=== PATIENT | female | born 1970 | race Caucasian/White ===

== ENCOUNTER 2019-11-16 22:36 | Emergency (ER) | payer BC, SELFPAY ==
--- NOTE | ~2019-11-16 | XR_ITS ---
EXAMINATION: XR chest 2V DATE: 11/16/2019 22:51 INDICATION: Cough TECHNIQUE: PA and lateral views of the chest are obtained. COMPARISON: 07/31/2004 FINDINGS: The lungs are free of acute opacities. There is no pleural effusion or pneumothorax. The ca rdiomediastinal silhouette is normal. There is mild thoracic spondylosis. IMPRESSION: 1. No acute cardiopulmonary abnormality. Reviewed, dictated and finalized at location A.
--- NOTE | 2019-11-16 22:41 | ED.GENADULT ---
HPI - General Adult General Chief complaint: Unspecified Stated complaint: cough Time Seen by Provider: 11/16/19 22:41 History of Present Illness HPI narrative: She awoke from sleep this evening choking and gasping for air. She was in significant distress and her performed the heimlich. This lasted less than a minute before sudden resoltution. She has had a few similar episodes in the past. She has never sought evaluation. She reports a long history of easy choking. She has had a nocturnal cough for a few weeks. On arrival to the ED she is asymptomatic. Related Data Home Medications Medication Instructions Recorded Confirmed norgestrel 0.3 mg-ethinyl 1 tablet PO DAILY 07/12/19 11/08/19 estradiol 30 mcg tablet Allergies Allergy/AdvReac Type Severity Reaction Status Date / Time No Known Allergies Allergy Verified 11/08/19 12:56 Review of Systems Review of Systems: All systems reviewed & are unremarkable except as noted in HPI and below Constitutional: Constitutional: Denies fever(s) ENT: Denies sore throat Cardiovascular: Cardiovascular: Denies chest pain Respiratory: Respiratory: Denies chest congestion, Reports cough, Reports dyspnea and Denies wheezing [facility] Family History Family History Father Hypertension Malignant neoplasm of prostate Mother Hypertension Family history of diabetes mellitus in first degree relative Social History Social History Smoking status: Never smoker Alcohol intake: never Exam Const: General: no acute distress Orientation/consciousness: patient oriented x3 HENMT: Head: normal to inspection Neck: Neck: normal visual inspection Resp: Effort & Inspection: normal respiratory effort Auscultation: clear to auscultation bilaterally, no rales, no rhonchi and no wheezes Cardio: Jugular venous distension: no JVD Rate: regular rate Rhythm: regular rhythm Heart sounds: no murmurs GI: Inspection: non-distended GI Palp: Yes Soft to palpation and No Tenderness to palpation present (GI) Skin: General skin exam: normal color Neuro: General: patient oriented x3 and moves all extremities Speech: normal speech Extrem: General: no edema Psych: Appearance: well kempt Affect: normal affect Course Vital Signs Vital signs: Vital Signs Temperature 36.6 C 05/22/20 22:44 Pulse Rate 99 11/16/19 22:44 Respiratory Rate 18 11/16/19 22:44 Blood Pressure 138/60 11/16/19 22:44 Pulse Oximetry 99 11/16/19 22:44 Temperature 36.6 C 11/16/19 22:44 Pulse Rate 70 11/17/19 00:11 Respiratory Rate 18 11/17/19 00:11 Blood Pressure 122/77 11/17/19 00:11 Pulse Oximetry 99 11/17/19 00:11 Medical Decision Making MDM Narrative Medical decision making narrative: Her history bring a few differnt possibilities to mind GERD, vocal cord spasm, anxiety, bronchospasm. Unfortunately there is no specific ED testing that will provide a definitive diagnosis. I discussed this with her in detail. She will plan to follow-up with her PCP for possible specialist referral. Medical Records Medical records reviewed: Yes I reviewed the patient's medical records. Vital Signs Vital Signs: Vital Signs Temperature 36.6 C 11/16/19 22:44 Pulse Rate 99 11/16/19 22:44 Respiratory Rate 18 11/16/19 22:44 Blood Pressure 138/60 11/16/19 22:44 Pulse Oximetry 99 11/16/19 22:44 Temperature 36.6 C 11/16/19 22:44 Pulse Rate 70 11/17/19 00:11 Respiratory Rate 18 11/17/19 00:11 Blood Pressure 122/77 11/17/19 00:11 Pulse Oximetry 99 11/17/19 00:11 Imaging Data Radiologist's impression: ITS Impressions Chest X-Ray 11/16/19 22:52 IMPRESSION: 1. No acute cardiopulmonary abnormality. Discharge Plan Discharge Clinical Impression: Choking episode Patient Disposition: Home, Self-Care Condition:
[2019-11-16 22:44] VITALS: BP 138/60; PULSE 99; RESP 18; TEMP 36.6; O2SAT 99
[2019-11-17] MEDS: BENZONATATE 100 MG CAPSULE 200 MG PO (00:09)
[2019-11-17 00:11] VITALS: BP 122/77; PULSE 70; RESP 18; O2SAT 99
== END 2019-11-17 00:12 | disposition home or self-care (01) ==
PROVIDERS: Emergency Provider Emergency Medicine; PCP Family Medicine
DX: T17.908A Unspecified foreign body in respiratory tract, part unspecified causing other injury, initial encounter (principal)
CPT/HCPCS: 71046; 99283; A9270

== ENCOUNTER 2019-11-22 07:21 | Outpatient (CLI) | payer BC, SELFPAY ==
--- NOTE | ~2019-11-22 | XR_ITS ---
EXAMINATION: XR barium swallow DATE: 11/22/2019 08:09 INDICATION: Dysphagia, unspecified. TECHNIQUE: The patient drank thick barium, gas-producing crystals, and thin barium. Fluoroscopy of th e hypopharynx and esophagus was performed. Fluoroscopy exposure time was 0.4 minutes. The total numbe r of images was 265. The dose-area product was 0.67 Gy-cm^2. COMPARISON: None. FINDINGS: There is no mass or stricture of the esophagus. Esophageal motility is normal. There is no hiatal hernia. There was no gastroesophageal reflux with provocative maneuvers. IMPRESSION: 1. Normal esophagram. Reviewed, dictated and finalized at location A. IMPRESSION: 1. Normal esophagram.
== END 2019-11-22 07:22 | disposition home or self-care (01) ==
LOC: ANHIMG 07:22
PROVIDERS: PCP Family Medicine; Visit Provider Otolaryngology
DX: R13.10 Dysphagia, unspecified (principal)
CPT/HCPCS: 74220

== ENCOUNTER 2019-11-23 02:45 | Emergency (ER) | payer BC, SELFPAY ==
--- NOTE | ~2019-11-23 | XR_ITS ---
EXAMINATION: XR chest 2V DATE: 11/23/2019 03:53 INDICATION: Shortness of breath. Cough. TECHNIQUE: Frontal and lateral views of the chest were obtained. COMPARISON: Chest 2 views 11/16/2019, CT abdomen and pelvis 08/24/2011 FINDINGS: A calcified left lung nodule is consistent with old granulomatous disease. No pleural effus ion or pneumothorax. The heart size is normal. IMPRESSION: 1. No acute cardiopulmonary disease. Reviewed, dictated and finalized at location A.
[2019-11-23 03:09] VITALS: BP 134/84; PULSE 88; RESP 18; TEMP 36.1; O2SAT 98
[2019-11-23 03:38] LABS: Basophils Percent Auto 0.3 % (0.2-1.2); Eosinophils Percent Auto 0.5 % (0-4.4); Hematocrit 38.4 % (37.0-47.0); Hemoglobin 12.7 g/dL (12.0-15.0); Immature Granulocyte Absolute 0.03 K/mm3 (0.00-0.031); Immature Granulocyte Percent A 0.3 % (0-0.5); Lymphocytes Absolute Auto 2.09 K/mm3 (0.9-3.2); Lymphocytes Percent Auto 24.2 % (18.3-44.2); Mean Corpuscular HGB Conc 33.1 g/dl (32-36); Mean Corpuscular Hemoglobin 28.3 pg (26-34); Mean Corpuscular Volume 85.7 fl (80-100); Mean Platelet Volume 9.6 fl (7.4-10.4); Monocytes Absolute Auto 0.7 K/mm3 (0.1-0.6); Neutrophils Absolute Auto 5.7 K/mm3 (1.3-6.7); Neutrophils Percent Auto 66.7 % (45.5-73.1); Platelet Count Result 346 k/mm3 (150-375); Red Blood Count 4.48 M/mm3 (4.2-5.4); Red Cell Distribution Width 12.5 % (11.5-14.5); White Blood Count 8.6 K/mm3 (4.5-10.0)
--- NOTE | 2019-11-23 03:44 | PC.NURSE ---
Dr. Washington at bedside for exam. Cancels ekg.
[2019-11-23 03:50] LABS: Blood Urea Nitrogen 12 mg/dL (7-17); Calcium 9.2 mg/dL (8.4-10.2); Carbon Dioxide 27 mmol/L (22-30); Chloride 103 mmol/L (98-107); Estimated CRCL calculation 71 ml/min; Estimated Glomerular Filt Rate > 60; Glucose 113 mg/dL (65-105); Potassium 3.8 mmol/L (3.4-5.0); Sodium 138 mmol/L (137-145)
--- NOTE | 2019-11-23 03:51 | ED.SOB ---
HPI - SOB/Dyspnea General Chief Complaint: Shortness of Breath/Dyspnea Stated Complaint: sob Time Seen by Provider: 11/23/19 03:26 History of Present Illness HPI Narrative: Patient presents with her for 3 weeks of coughing. She coughs until she chokes, and then feels frightened that she cannot get any air. She said her primary doc called falguni. She had a swallow test yesterday which came out fine. She knows she has some reflux but does not feel that this is stomach acid or vomit. She has had no fever chills and sweats. She does not have a history of asthma and has not had any wheezing. She cannot stop the coughing. She has been taking codeine and that has not helped. She had an episode here where she coughed and coughed and coughed and her face turned red, and she felt like she could not breathe for a couple seconds, and then it resolved. Her oxygen stayed high normal the whole time. She works as a teacher in the [employer]. MD elicited complaint: shortness of breath and cough Related Data Home Medications Medication Instructions Recorded Confirmed norgestrel 0.3 mg-ethinyl 1 tablet PO DAILY 07/12/19 11/20/19 estradiol 30 mcg tablet Allergies Allergy/AdvReac Type Severity Reaction Status Date / Time No Known Allergies Allergy Verified 11/23/19 03:19 Review of Systems Review of Systems: Narrative: CONSTITUTIONAL: Denies fever, chills, or sweats. EYES: Denies visual changes, redness, or discharge. ENT: Denies rhinorrhea, congestion, sore throat, or otalgia. CARDIOVASCULAR: Denies chest pain, palpitations, or edema. RESPIRATORY: She has cough and dyspnea and sputum. No wheezes. GASTROINTESTINAL: Denies abdominal pain, nausea, vomiting, or diarrhea. GENITOURINARY: Denies dysuria or hematuria. SKIN: Denies rash or itching. MUSCULOSKELETAL: Denies back pain, joint pain, or myalgia. NEUROLOGIC: Denies headache, numbness, or weakness. PSYCHIATRIC: Denies anxiety or depression. [facility] Past Medical History Medical History Choking Stridor Family History Family History Father Hypertension Malignant neoplasm of prostate Mother Hypertension Family history of diabetes mellitus in first degree relative Social History Social History Smoking status: Never smoker Alcohol intake: never Exam Narrative: Exam Narrative: GENERAL: Well-appearing, well-nourished, and in no acute distress. HEAD: Normocephalic, atraumatic. EYES: PERRLA and EOMI. ENT: Nares clear, no rhinorrhea or epistaxis. Mucous membranes moist. NECK: Supple. CHEST: Clear to auscultation. No respiratory distress. HEART: Regular rate and rhythm. No murmur heard. Normal peripheral pulses. ABDOMEN: Soft, nontender, nondistended, normal active bowel sounds. EXTREMITIES: Normal range of motion. No edema. SKIN: Warm, dry, no rash. NEURO: No focal deficits. Alert and oriented x3. PSYCH: Normal mood and affect. Course Reevaluation(s) Reevaluation #1: Explained the x-ray findings to the patient and her . She got the morphine for cough suppression, and the Solu-Medrol. I re-explained my prescriptions to both of them, and told her that I found a refrigeration plant operator for her to follow-up with. She does not work until Tuesday, and so does not need a note for work. Date: 11/23/19 Time: 04:11 Vital Signs Vital signs: Vital Signs Temperature 97.0 F L 11/23/19 03:09 Pulse Rate 88 11/23/19 03:09 Respiratory Rate 18 11/23/19 03:09 Blood Pressure 134/84 11/23/19 03:09 Pulse Oximetry 98 11/23/19 03:09 Temperature 97.0 F L 11/23/19 03:09 Pulse Rate 88 11/23/19 03:09 Respiratory Rate 18 11/23/19 03:09 Blood Pressure 134/84 11/23/19 03:09 Pulse Oximetry 98 11/23/19 03:09 MDM - SOB/Dyspnea Medical Records Attestation: I reviewed the patient's medical records
[2019-11-23] MEDS: methylPREDNISolone SOD SUCC 125 MG VIAL IV PUSH (04:01)
[2019-11-23] MEDS: MORPHINE SULFATE 2 MG/ML INJ IV PUSH (04:03)
[2019-11-23 04:25] VITALS: BP 115/79; PULSE 66; RESP 15; O2SAT 97
== END 2019-11-23 04:27 | disposition home or self-care (01) ==
PROVIDERS: Emergency Provider Emergency Medicine; PCP Family Medicine
DX: J98.01 Acute bronchospasm (principal); T17.308A Unspecified foreign body in larynx causing other injury, initial encounter
CPT/HCPCS: 36415; 71046; 80048; 85025; 96374; 96375; 99284; J2270; J2930

== ENCOUNTER 2019-12-06 11:18 | Outpatient (CLI) | payer BC, SELFPAY ==
--- NOTE | ~2019-12-06 | MMUS_ITS ---
EXAMINATION: MM screen LT diag RT w danielle, US breast RT limited HISTORY: Follow-up right breast abnormalities. TECHNIQUE: Additional 3-D tomosynthesis images of the right breast were performed and synthetic 2-D i mages were generated. Screening left mammogram. CAD analysis was submitted and interpreted. High reso lution Limited right breast ultrasound was performed. COMPARISON: Comparison to multiple prior studies sequentially, with oldest reviewed study dated 12/2010. FINDINGS: MAMMOGRAPHIC FINDINGS: The breasts are heterogenously dense, which may obscure small masses. The right breast is stable. No new masses, calcifications or architectural distortion are identified to suggest malignancy. There is no mammographic evidence for malignancy in the left breast. ULTRASOUND: Right breast ultrasound: At 8:00, 6 cm from the nipple, there is a 4 mm minimally complicated cyst. At 9:00, 4 cm from the nip ple, there is a 4 mm cyst. At 10:00, 5 cm from the nipple, there is an oval circumscribed hypoechoic mass measuring 6 mm with posterior acoustic enhancement. No internal vascularity. This lesion is unch anged from prior study. At 10:00, 4 cm from the nipple, there is a 9 mm complicated cyst. At 10:00, 3 cm from the nipple, there is a cluster of microcysts measuring 5 mm in aggregate. IMPRESSION: 1. Multiple benign-appearing right breast abnormalities. 2. Recommend 6 month follow-up right breast ultrasound BI-RADS category 3, probably benign findings. Reviewed, dictated and finalized at location A. IMPRESSION: 1. Multiple benign-appearing right breast abnormalities. 2. Recommend 6 month follow-up right breast ultrasound BI-RADS category 3, probably benign findings.
== END 2019-12-06 11:19 | disposition home or self-care (01) ==
PROVIDERS: PCP Family Medicine; Visit Provider Obstetrics & Gynecology
DX: Z12.31 Encounter for screening mammogram for malignant neoplasm of breast (principal); R92.8 Other abnormal and inconclusive findings on diagnostic imaging of breast
CPT/HCPCS: 76642; 77063; 77065; 77067

== ENCOUNTER 2020-02-05 01:19 | Outpatient (CLI) | payer BC, SELFPAY ==
[2020-02-05 18:35] LABS: SARS-CoV-2 RNA PCR Negative
== END 2020-02-05 01:20 | disposition home or self-care (01) ==
LOC: ANHCOVIDDT 01:19
PROVIDERS: PCP Family Medicine; Visit Provider Internal Medicine Gastroenterology
DX: Z01.812 Encounter for preprocedural laboratory examination (principal); Z20.828 Contact with and (suspected) exposure to other viral communicable diseases
CPT/HCPCS: 87635; C9803; U0003

== ENCOUNTER 2020-02-07 01:03 | Day surgery (SDC) | payer BC, SELFPAY ==
[2020-01-31 13:31] VITALS: BMI 25.9
[2020-02-07 07:38] VITALS: BP 117/71; PULSE 52; RESP 16; TEMP 36.8; O2SAT 100; BMI 25.9
[2020-02-07] MEDS: LACTATED RINGERS 1,000 ML 150 ML IV CONT (07:50)
--- NOTE | 2020-02-07 08:02 | PM.HPGS ---
History of Present Illness History of Present Illness Consent: Risks, benefits, and alternatives have been discussed and questions answered. Patient agrees to proceed with procedure. Chief complaint: Neoplasm Screening Narrative: Mary Ellen Ken is a 49 year old W female referred for screening colonoscopy. Patient is asymptomatic and has no family history of colon polyps or colon cancer. Patient did have a colonoscopy 8 years ago for lower abdominal pain which was normal. [facility] Past Medical History Medical History (Updated 02/07/20 @ 08:03 by Antonio Lai MD) Choking GERD (gastroesophageal reflux disease) Stridor Surgical History Surgical History (Updated 02/07/20 @ 08:03 by Antonio Lai MD) Delivery by section Social History Social History Smoking status: Never smoker Alcohol intake: never Meds Home Medications and Allergies Home Medications Medication Instructions Recorded Confirmed Type norgestrel 0.3 mg-ethinyl 1 tablet PO DAILY 07/12/19 02/07/20 History estradiol 30 mcg tablet albuterol sulfate 90 mcg/actuation 1 inhalation INHALATION QID PRN #8 12/10/19 02/07/20 Rx aerosol inhaler gm nitroglycerin 0.4 mg sublingual 0.4 mg SUBLINGUAL Q5M PRN #25 12/17/19 01/31/20 Rx tablet tablet levothyroxine 25 mcg tablet 25 mcg PO DAILY #90 tablet 01/10/20 02/07/20 Rx omeprazole 40 mg PO DAILY 01/31/20 02/07/20 History Allergies Allergy/AdvReac Type Severity Reaction Status Date / Time No Known Allergies Allergy Verified 02/07/20 07:37 Vital Signs Vital Signs - 24 hr 02/07/20 07:38 Temperature 36.8 C Pulse Rate 52 L Respiratory Rate 16 Blood Pressure 117/71 Pulse Oximetry 100 Exam Const: Orientation/consciousness: patient oriented x3 Resp: Auscultation: clear to auscultation bilaterally Cardio: Rate: regular rate Rhythm: regular rhythm Heart sounds: no murmurs GI: GI Palp: Yes Soft to palpation, No Tenderness to palpation present (GI), Yes No hepatosplenomegaly present and No Palpable mass present Auscultation: normal bowel sounds Neuro: General: patient oriented x3 and no focal motor deficits Extrem: General: no pedal edema Assessment and Plan Additional Plan screening colonoscopy in average risk patient
--- NOTE | 2020-02-07 08:08 | WPDANESEPPF ---
Anes - Initial Pre Proc Eval Procedure: Operation Date: 02/07/20 08:30 Proposed Procedures p Screening Colonoscopy - Antonio Lai MD Date/Time: 02/07/20 08:08 Surgeon: Antonio Lai MD Pre Op Diagnosis: Neoplasm Screening Patient Data Age: 49 Gender: F Height: 5 ft 7 in Weight: 75.3 kg Last Vital Signs Temp 36.8 C 02/07/20 07:38 Pulse 52 L 02/07/20 07:38 Resp 16 02/07/20 07:38 BP 117/71 02/07/20 07:38 Pulse Ox 100 02/07/20 07:38 Allergies Allergy/AdvReac Type Severity Reaction Status Date / Time No Known Allergies Allergy Verified 02/07/20 07:37 Home Medications Medication Instructions Recorded Confirmed Type norgestrel 0.3 mg-ethinyl 1 tablet PO DAILY 07/12/19 02/07/20 History estradiol 30 mcg tablet albuterol sulfate 90 mcg/actuation 1 inhalation INHALATION QID PRN #8 12/10/19 02/07/20 Rx aerosol inhaler gm nitroglycerin 0.4 mg sublingual 0.4 mg SUBLINGUAL Q5M PRN #25 12/17/19 01/31/20 Rx tablet tablet levothyroxine 25 mcg tablet 25 mcg PO DAILY #90 tablet 01/10/20 02/07/20 Rx omeprazole 40 mg PO DAILY 01/31/20 02/07/20 History Patient hx anesthesia problems: none Family hx anesthesia problems: none PMFSH Past Medical History Medical History Choking GERD (gastroesophageal reflux disease) Stridor Surgical History Surgical History Delivery by section Family History Family History Father Hypertension Malignant neoplasm of prostate Mother Hypertension Family history of diabetes mellitus in first degree relative Social History Social History Smoking status: Never smoker Alcohol intake: never Anes - Eval Final PreProcedure Day of Procedure 02/07/20 08:08 Last oral intake: >/= 8 hours ASA classification: II Emergent: no Anesthetic plan: proceed Anesthesia type and monitoring: general GIVS and standard monitoring Informed Consent: The patient's anesthetic plan and its attendant risks and benefits were discussed with the patient/family/POA. Questions were solicited and answers provided to the satisfaction of the patient/family/POA.
[2020-02-07 09:00] VITALS: BP 102/60; PULSE 71; RESP 24; O2SAT 100
[2020-02-07 09:10] VITALS: BP 105/65; PULSE 59; RESP 17; O2SAT 100
[2020-02-07 09:20] VITALS: BP 94/58; PULSE 55; RESP 16; O2SAT 100
== END 2020-02-07 09:33 | disposition home or self-care (01) ==
PROVIDERS: PCP Family Medicine; Visit Provider Internal Medicine Gastroenterology
PROC: 0DJD8ZZ Inspection of Lower Intestinal Tract, Via Natural or Artificial Opening Endoscopic (ICD-10-PCS; CPT 45378; principal; 2020-02-07 08:30)
DX: Z12.11 Encounter for screening for malignant neoplasm of colon (principal); K21.9 Gastro-esophageal reflux disease without esophagitis
CPT/HCPCS: 45378; J2704; J7120

== ENCOUNTER 2021-02-09 09:35 | Outpatient (CLI) | payer BC, SELFPAY ==
--- NOTE | ~2021-02-09 | MM_ITS ---
EXAMINATION: MM screening [facility] BI w danielle HISTORY: Screening mammogram TECHNIQUE: Craniocaudal and mediolateral oblique 3-D tomosynthesis images were obtained and synthetic 2-D images were generated. CAD analysis was submitted and interpreted. COMPARISON: 12/06/2019, 04/26/2019, 11/24/2018, 11/07/2018 BREAST PARENCHYMAL COMPOSITION: There are scattered areas of fibroglandular density. FINDINGS: There is no evidence of suspicious mass, calcification, or architectural distortion to sugg est malignancy in either breast. There has been no suspicious interval change. IMPRESSION: 1. No mammographic evidence of malignancy. 2. Recommend routine screening mammography in one year. BI-RADS Category 1: Negative Reviewed, dictated and finalized at location A.
== END 2021-02-09 09:36 | disposition home or self-care (01) ==
LOC: ANHIMG 09:39
PROVIDERS: PCP Family Medicine; Visit Provider Obstetrics & Gynecology
DX: Z12.31 Encounter for screening mammogram for malignant neoplasm of breast (principal)
CPT/HCPCS: 77063; 77067

== ENCOUNTER 2022-02-10 10:54 | Outpatient (CLI) | payer BC, SELFPAY ==
--- NOTE | ~2022-02-10 | MM_ITS ---
EXAMINATION: MM screening [facility] BI w danielle HISTORY: Screening mammogram TECHNIQUE: Craniocaudal and mediolateral oblique 3-D tomosynthesis images were obtained and synthetic 2-D images were generated. CAD analysis was submitted and interpreted. COMPARISON: 02/09/2021 bilateral screening mammogram 12/06/2019 diagnostic right digital screening mammogram and limited right breast ultrasound 04/26/2019 and 11/24/2018 diagnostic right mammogram and limited right breast ultrasound 11/07/2018 bilateral screening mammogram BREAST PARENCHYMAL COMPOSITION: The breasts are heterogeneously dense, which may obscure small masses . FINDINGS: There is no evidence of suspicious mass, calcification, or architectural distortion to sugg est malignancy in either breast. There has been no suspicious interval change. IMPRESSION: 1. No mammographic evidence of malignancy. 2. Recommend routine screening mammography in one year. BI-RADS Category 1: Negative Reviewed, dictated and finalized at location A.
== END 2022-02-10 10:55 | disposition home or self-care (01) ==
PROVIDERS: PCP Family Medicine; Visit Provider Obstetrics & Gynecology
DX: Z12.31 Encounter for screening mammogram for malignant neoplasm of breast (principal)
CPT/HCPCS: 77063; 77067

== ENCOUNTER 2023-02-14 14:07 | Outpatient (CLI) | payer BC, SELFPAY ==
--- NOTE | ~2023-02-14 | MM_ITS ---
EXAMINATION: MM screening [facility] BI w danielle HISTORY: Screening mammogram TECHNIQUE: Craniocaudal and mediolateral oblique 3-D tomosynthesis images were obtained and synthetic 2-D images were generated. CAD analysis was submitted and interpreted. COMPARISON: 02/10/2022, 02/09/2021 bilateral screening mammogram examinations BREAST PARENCHYMAL COMPOSITION: There are scattered areas of fibroglandular density. FINDINGS: There is no evidence of suspicious mass, calcification, or architectural distortion to sugg est malignancy in either breast. There has been no suspicious interval change. IMPRESSION: 1. No mammographic evidence of malignancy. 2. Recommend routine screening mammography in one year. BI-RADS Category 1: Negative Reviewed, dictated and finalized at location A.
== END 2023-02-14 14:08 | disposition home or self-care (01) ==
LOC: ANHIMG 14:09
PROVIDERS: PCP Family Medicine; Visit Provider Obstetrics & Gynecology
DX: Z12.31 Encounter for screening mammogram for malignant neoplasm of breast (principal)
CPT/HCPCS: 77063; 77067

== ENCOUNTER 2024-02-28 14:43 | Outpatient (CLI) | payer BC, SELFPAY ==
--- NOTE | ~2024-02-28 | MM_ITS ---
EXAMINATION: MM screening [facility] BI w danielle HISTORY: Screening TECHNIQUE: Craniocaudal and mediolateral oblique 3-D tomosynthesis images were obtained and synthetic 2-D images were generated. CAD analysis was submitted and interpreted. COMPARISON: Comparison to multiple prior studies sequentially, with oldest reviewed study dated 11/24. BREAST PARENCHYMAL COMPOSITION: Not dense: There are scattered areas of fibroglandular density. FINDINGS: There is no evidence of suspicious mass, calcification, or architectural distortion to sugg est malignancy in either breast. There has been no suspicious interval change. IMPRESSION: 1. No mammographic evidence of malignancy. 2. Recommend routine screening mammography in one year. BI-RADS Category 1: Negative Reviewed, dictated and finalized at location B.
== END 2024-02-28 14:44 | disposition home or self-care (01) ==
LOC: ANHIMG 14:43
PROVIDERS: PCP Family Medicine; Visit Provider Obstetrics & Gynecology
DX: Z12.31 Encounter for screening mammogram for malignant neoplasm of breast (principal)
CPT/HCPCS: 77063; 77067

== ENCOUNTER 2025-02-28 14:28 | Outpatient (CLI) | payer BC, SELFPAY ==
--- NOTE | ~2025-02-28 | MM_ITS ---
EXAMINATION: MM screening piter BI w danielle HISTORY: Screening TECHNIQUE: Craniocaudal and mediolateral oblique 3-D tomosynthesis images were obtained and synthetic 2-D images were generated. CAD analysis was submitted and interpreted. COMPARISON: Mammograms from 02/28/2024 and 02/14/2023 BREAST PARENCHYMAL COMPOSITION: The breasts are heterogeneously dense, which may obscure small masses. FINDINGS: There is no evidence of suspicious mass, calcification, or architectural distortion to suggest malignancy. Focal asymmetry in the upper- outer quadrant of the left breast, posterior depth. IMPRESSION: 1. Focal asymmetry in the upper-outer quadrant of the left breast, posterior depth. The study is incomplete. A diagnostic left breast mammogram and a diagnostic left breast ultrasound is recommended. 2. No mammographic evidence for malignancy in the right breast. BI-RADS Category 0: Incomplete-needs additional imaging evaluation Reviewed, dictated and finalized at location Q. IMPRESSION: 1. Focal asymmetry in the upper-outer quadrant of the left breast, posterior de pth. The study is incomplete. A diagnostic left breast mammogram and a diagnost ic left breast ultrasound is recommended. 2. No mammographic evidence for malignancy in the right breast. BI-RADS Category 0: Incomplete-needs additional imaging evaluation
--- OUTSIDE RECORDS SUMMARY | 2025-02-28 14:40 | XMS_ITS | Encounter Summary ---
Author Organization [facility] Address Formerly [facility] [place] [address] Care Team Providers Care Edging Machine Setter Name Role Phone Gary Fuentes MD Primary Care Provider [phone] Encounter Details Date Type Department Care Team (Late st Contact Info) Description 11/14/2023 Infolinks Message [employer] [facility] C-Note [address] [place] [address] Finderlyambrose, [facility] Provider Proof of name change Social History Tobacco Use Types Packs/Day Years Used Date Smoking Tobacco: Never Smokeless Tobacco: Never Alcohol Use Standard Drinks/Week Comments No 0 (1 standard drink = 0.6 oz pur e alcohol) AUDIT-C Answer Date Recorded Frequency of Alcohol Consumption Never 12/15/2018 Average Number of Drinks Not on file 019 Frequency of Binge Drinking Not on file 11/26 Comments No Sex and Gender Information Value Date Recorded Sex Assigned at Not on file Legal Sex Female 7:54 AM CDT Gender Identity Not on file Sexual Orientation Not on file documented as of this encounter Plan of Treatment Not on file documented as of this encounter Visit Diagnoses Not on filedocumented in this encounter Care Teams Edging Machine Setter Relationship Specialty Start Date End Date Gary Fuentes MD [address] [address] PCP - General FAMILY PRACTICE 11/22/19 documented as of this encounter
--- OUTSIDE RECORDS SUMMARY | 2025-02-28 14:40 | XMS_ITS | Clinical Summary ---
Author Organization [facility] Address [address] [place] [address] Care Team Providers Care Welding Equipment Sales Representative Name Role Phone Gary Fuentes MD Primary Care Provider [phone] Allergies No known active allergies Medications CRYSELLE-28 0.3-30 MG-MCG tablet Take 1 tablet by mouth daily. 11/25/2018 Active levothyroxine 100 MCG tablet Take 100 mcg by mouth every morning. Active Benzonatate (TESSALON PERLES OR) Active diazePAM 2 MG tablet Take 2 mg by mouth every 6 (six) hours as needed for Anxiety. Active guaiFENesin-code ine (GUAIFENESIN AC) 100-10 MG/5ML syrup Take 5 mLs by mouth every 4 (four) hours as needed for Cough. Active Active Problems No known active problems Social History Tobacco Use Types Packs/Day Years [...] on file Sexual Orientation Not on file Last Filed Vital Signs Vital Sign Reading Time Taken Comments Blood Pressure 118/64 11/22/2019 1:54 PM CDT Pulse 88 11/22/2019 1:54 PM CDT Temperature 36.3 C (97.4 F) 11/22/2019 1:54 PM CDT Respiratory Rate 18 11/22/2019 1:54 PM CDT Oxygen Saturation 98% 11/22/2019 1:54 PM CDT Inhaled Oxygen Concentration - - Weight 74.8 kg (164 lb 12.8 oz) 11/22/2019 1:54 PM CDT Height 170.2 cm (5' 7) 11/22/2019 1:54 PM CDT Body Mass Index 25.81 11/22/2019 1:54 PM CDT Plan of Treatment Health Maintenance Due Date Last Done Comments Cervical Cancer Screening Pa p Smear (Age 30 to 64) Every 3 Years 1969 Colorectal Cancer Screening Colonoscopy (10 Years) 1969 Annual Physical 1972 Hepatitis C 1987 DTaP, Tdap and Td Vaccines ( 1 - Tdap) 1988 Hepatitis B Vaccines (1 of 3 - 19+ 3-dose series) 1988 Cervical Cancer Screening Pa p with HPV Testing (Age 30 to 64) Every 5 Years 1999 Cervical Cancer Screening with HPV 1999 Mammogram Screening 2009 Pneumococcal Vaccine: 50+ Ye ars (1 of 1 - PCV) 2019 Zoster Vaccines (1 of 2) 2019 COVID-19 Vaccine ( - 2023-2 5 season) 2024 Meningococcal B Vaccine Aged Out No l onger eligible based on patient's age to complete this topic Meningococcal Vaccine Aged Out No mook jorge eligible based on patient's age to complete this topic RSV Immunizations Under 20 Months Aged Out No longer eligible based on patient's age to complete this topic Insurance [facility] Care Teams Welding Equipment Sales Representative Relationship Specialty Start Date End Date Gary Fuentes MD [address] [place], [place] [id number] PCP - General FAMILY PRACTICE 11/22/19
== END 2025-02-28 14:29 | disposition home or self-care (01) ==
LOC: ANHFOHIMG 14:30
PROVIDERS: PCP Family Medicine; Visit Provider Obstetrics & Gynecology
DX: Z12.31 Encounter for screening mammogram for malignant neoplasm of breast (principal); R92.8 Other abnormal and inconclusive findings on diagnostic imaging of breast
CPT/HCPCS: 77063; 77067

== ENCOUNTER 2025-03-19 15:33 | Outpatient (CLI) | payer BC, SELFPAY ==
--- NOTE | ~2025-03-19 | XR_ITS ---
EXAMINATION: XR knee LT 3V, 03/19/2025 15:40 CDT HISTORY: M25.561 - Pain in right knee COMPARISON: No comparisons available. Findings: No acute fracture or malalignment. No significant degenerative changes. Soft tissues unremarkable. Impression: No acute fracture or malalignment. Reviewed, dictated and finalized at location A. Impression: No acute fracture or malalignment.
--- NOTE | ~2025-03-19 | XR_ITS ---
EXAMINATION: XR knee RT 3V, 03/19/2025 15:40 CDT HISTORY: M25.561 - Pain in right knee COMPARISON: No comparisons available. Findings: No acute fracture or malalignment. No significant degenerative changes. Soft tissues unremarkable. Impression: No acute fracture or malalignment. Reviewed, dictated and finalized at location A. Impression: No acute fracture or malalignment.
--- OUTSIDE RECORDS SUMMARY | 2025-03-19 15:37 | XMS_ITS | Clinical Summary ---
Author Organization [facility] Address [address] [place] [address] Care Team Providers Care Solder Leveler Printed Circuit Boards Name Role Phone Gary Fuentes MD Primary Care Provider [phone] Allergies No known active allergies Medications CRYSELLE-28 [...] COVID-19 Vaccine ( - 2023-2 5 season) 2025 Meningococcal B Vaccine Aged Out No l onger eligible based on patient's age to complete this topic Meningococcal Vaccine Aged Out No mook jorge eligible based on patient's age to complete this topic RSV Immunizations Under 20 Months Aged Out No longer eligible based on patient's age to complete this topic Insurance [facility] Care Teams Solder Leveler Printed Circuit Boards Relationship Specialty Start Date End Date Gary Fuentes MD [address] [place], [place] [id number] PCP - General FAMILY PRACTICE 11/22/19
--- OUTSIDE RECORDS SUMMARY | 2025-03-19 15:37 | XMS_ITS | Encounter Summary ---
Author Organization [facility] Address Formerly [facility] [place] [address] Care Team Providers Care Loft Worker Apprentice Name Role Phone Gary Fuentes MD Primary Care Provider [phone] Encounter Details Date Type Department Care Team (Late st Contact Info) Description 11/14/2023 NitroSell Message [facility] [address] [place] [address] [address] [facility], [facility] Provider Proof of name change Social History [...] on filedocumented in this encounter Care Teams Loft Worker Apprentice Relationship Specialty Start Date End Date Gary Fuentes MD [address] [address] PCP - General FAMILY PRACTICE 11/22/19 documented as of this encounter
== END 2025-03-19 15:34 | disposition home or self-care (01) ==
PROVIDERS: PCP Family Medicine; Visit Provider Physician Assistant Medical
DX: M25.561 Pain in right knee (principal); M25.562 Pain in left knee; G89.29 Other chronic pain
CPT/HCPCS: 73562

== ENCOUNTER 2025-04-08 13:17 | Outpatient (CLI) | payer BC, SELFPAY ==
--- NOTE | ~2025-04-08 | MMUS_ITS ---
EXAMINATION: MM diagnostic piter LT w danielle, US breast LT limited HISTORY: Inconclusive mammogram TECHNIQUE: Additional 3-D tomosynthesis images of the left breast were performed and synthetic 2-D images were generated. CAD analysis was submitted and interpreted. High resolution left breast ultrasound was performed. COMPARISON: Mammograms from 02/28/2025, 02/28/2024 and 02/14/2023 BREAST PARENCHYMAL COMPOSITION: The breast is heterogeneously dense, which may obscure small masses. FINDINGS: MAMMOGRAPHIC FINDINGS: Focal asymmetry in the upper-outer quadrant of the left breast. The mammographic focal asymmetry corresponds with a 1.2 cm heterogeneous mass identified sonographically in the left breast at the 2:00 position, 5 cm from the nipple. ULTRASOUND: There is a 1.2 x 1.2 x 0.9 cm heterogeneous mass in the left breast at 2:00 position 5 cm from the nipple middle depth. Margins are indistinct. There is internal color Doppler flow. No posterior acoustic shadowing. There is a mammographic correlate. The finding is suspicious. There is a 7 x 7 x 3 mm benign cyst in the left breast at 3:00 position 4 cm from the nipple. IMPRESSION: 1. There is a 1.2 cm mass in the left breast at the 2:00 position, 5 cm from the nipple. The finding is suspicious. An ultrasound-guided breast biopsy is recommended. BI-RADS 4-Suspicious finding. Protocol insures that results of the study are called and/or faxed to the referring clinician's office and documented in the patient's chart per critical findings protocol. Reviewed, dictated and finalized at location Q. IMPRESSION: 1. There is a 1.2 cm mass in the left breast at the 2:00 position, 5 cm from th e nipple. The finding is suspicious. An ultrasound-guided breast biopsy is joselyn mmended. BI-RADS 4-Suspicious finding. Protocol insures that results of the study are called and/or faxed to the refer ring clinician's office and documented in the patient's chart per critical find ings protocol.
--- OUTSIDE RECORDS SUMMARY | 2025-04-08 14:30 | XMS_ITS | Encounter Summary ---
Author Organization [facility] Address [address] [place] [address] Care Team Providers Care Deep Well Contractor Name Role Phone Gary Fuentes MD Primary Care Provider [phone] Encounter Details Date Type Department Care Team (Late st Contact Info) Description 11/14/2023 RemitDATA Message [facility] [employer] [address] [place] [address] [employer] [facility], [facility] Provider Proof of name change Social History [...] on filedocumented in this encounter Care Teams Deep Well Contractor Relationship Specialty Start Date End Date Gary Fuentes MD [address] [address] PCP - General FAMILY PRACTICE 11/22/19 documented as of this encounter
== END 2025-04-08 13:18 | disposition home or self-care (01) ==
LOC: ANHFOHIMG 13:18
PROVIDERS: PCP Family Medicine; Visit Provider Obstetrics & Gynecology
DX: R92.8 Other abnormal and inconclusive findings on diagnostic imaging of breast (principal)
CPT/HCPCS: 76642; 77061; 77065; G0279

== ENCOUNTER 2025-04-24 07:09 | Outpatient (CLI) | payer BC, SELFPAY ==
--- NOTE | ~2025-04-24 | MMUS_ITS ---
US breast biopsy LT w image, MM post biopsy diagnostic LT EXAMINATION: US GUIDED NEEDLE BIOPSY WITH VACUUM ASSISTANCE INDICATION: Left breast mass seen on prior examination. Ultrasound-guided core biopsy is requested to evaluate for malignancy. BREAST PARENCHYMAL COMPOSITION: Not dense: There are scattered areas of fibroglandular density. TECHNIQUE AND FINDINGS: The risks and potential benefits of the procedure were discussed with the patient, and written informed consent was obtained. After sterile preparation of the left breast, 1% lidocaine was utilized for local anesthesia. 1% lidocaine with epinephrine was used for deep anesthesia. A 10G vacuum-assisted biopsy gun needle was advanced through to the outer edge of the region of interest from a superior lateral approach utilizing sonographic guidance. A total of three tissue core samples were obtained through the lesion. An Inrad tissue marker clip was then placed at the biopsy site. Hemostasis was achieved. The patient tolerated procedure well and there was no evidence of immediate complication. The patient was given verbal instructions partly is from the department. Left breast mammograms to document tissue marker clip placement. The tissue samples were submitted to surgical pathology for histologic analysis. IMPRESSION: 1. Successful ultrasound-guided vacuum-assisted biopsy of left breast mass with post procedure mammogram for marker placement. Please refer to pathology report for histologic analysis. Reviewed, dictated and finalized at location B. IMPRESSION: 1. Successful ultrasound-guided vacuum-assisted biopsy of left breast mass wit h post procedure mammogram for marker placement. Please refer to pathology repo rt for histologic analysis.
--- OUTSIDE RECORDS SUMMARY | 2025-04-24 07:11 | XMS_ITS | Clinical Summary ---
Author Organization [facility] Address [address] [place] [address] Care Team Providers Care Floor Covering Layer Name Role Phone Gary Fuentes MD Primary Care Provider [phone] Allergies No known active allergies Medications CRYSELLE-28 [...] of 2) 2019 COVID-19 Vaccine ( - 2024-2 6 season) 2025 Influenza Adult (#1) 2025 Hepatitis A Vaccines Aged Out No long er eligible based on patient's age to complete this topic Meningococcal B Vaccine Aged Out No l onger eligible based on patient's age to complete this topic Meningococcal Vaccine Aged Out No mook jorge eligible based on patient's age to complete this topic RSV Immunizations Under 20 Months Aged Out No longer eligible based on patient's age to complete this topic Insurance [facility] Care Teams Floor Covering Layer Relationship Specialty Start Date End Date Gary Fuentes MD [address] [place] [address] PCP - General FAMILY PRACTICE 11/22/19
--- NOTE | 2025-04-24 09:58 | S_PTH ---
PATIENT: Mary Ellen Deluna LOC: [facility] U#:[id number] AGE/SX: 54/F ROOM: RE04/24/[address]: Sayra Gonzalez MD : 1970 BED: DIS: 04/24/2025 SPEC #: [id number] RECD: 04/24/25 10:49 STATUS: SISSY REPaige #: [id number] RODO: 04/24/25 09:[address]: Sayra Gonzalez DEPT: [facility] Surgical RECD BY: Keke Leger ENTERED: 04/24/25 10:49 SP TYPE: Surgical OTHR DR: Gary Fuentes MD Tissues: A - Breast Biopsy Procedures: Hematoxylin and Eosin Stain E-Cadherin Gross and Microscopic Level 4 ER-60 IA-60 MIB-60 HER 2-60
== END 2025-04-24 07:10 | disposition home or self-care (01) ==
PROVIDERS: PCP Family Medicine; Visit Provider Surgery
DX: N63.21 Unspecified lump in the left breast, upper outer quadrant (principal)
CPT/HCPCS: 19083; 77065; 88305; 88342; 88360; A4648

== ENCOUNTER 2025-04-30 07:23 | Outpatient (CLI) | payer BC, SELFPAY ==
--- NOTE | ~2025-04-30 | MR_ITS ---
MR breast BI wo/w con INDICATION:54 year old female recently diagnosed with left breast cancer at ultrasound-guided core needle biopsy completed on 04/08/2025 presents for evaluation of extent of disease. TECHNIQUE: MRI of the breasts perform using standard protocol pre-and post IV contrast with the following sequences: Axial T2 STIR, axial T1, axial vibrant T1 with fat suppression precontrast and multiphasic postcontrast. 15 cc MultiHance administered intravenously. COMPARISON: Mammogram and ultrasound dated 04/08/2025. FINDINGS: There is Scattered fibroglandular tissue that demonstrates Moderate enhancement and is Symmetric. Right breast: There is a 0.8 cm mass behind the nipple (axial postcontrast image 302) which demonstrates washout kinetics. This may represent an intraductal lesion. There is an additional 0.7 cm enhancing mass seen at 9:00 location at posterior depth (postcontrast axial image 287). There is mild background parenchymal enhancement. No other enhancing lesions following contrast administration. Nipple areolar complex is normal in appearance. No evidence of signal abnormalities in the axillary or internal mammary node distributions. LEFT BREAST: There is a 2.6 x 2 cm heterogeneously enhancing mass containing biopsy clip artifact in the lateral central location which correlates to the known biopsy-proven malignant lesion. There is nonmass enhancement that extends inferiorly from the index lesion spanning 3.2 cm. There is moderate background parenchymal enhancement. No other enhancing lesions following contrast administration. No other areas of enhancement meeting threshold criteria on CAD analysis. The nipple areolar complex is normal in appearance. There are at least one prominent lymph node with mildly thickened cortex in the left axilla.] IMPRESSION: 1: Right breast: Multiple enhancing lesions identified. Recommend further evaluation with Second Look ultrasound. 2. Left breast: Known biopsy-proven malignant lesion is identified as a 2.6 cm heterogeneously enhancing mass containing biopsy clip artifact in the lateral central location. There is a nonmass enhancement area that extends inferiorly spanning 3.2 cm. 3. Prominent lymph node in the left axilla otherwise The chest wall and axillary portion of the examination are unremarkable. RECOMMENDATION: 1. Second Look ultrasound right breast. If there is no sonographic correlate to the enhancing lesions in the right breast, then these are considered probably benign and follow-up breast MRI in 6 months would be recommended. 2. Appropriate medical oncology and surgical oncology management of known left breast malignancy. BI-RADS Category 0: Incomplete: Needs additional imaging evaluation. Reviewed, dictated and finalized at location B. IE MIXER HELPER IMPRESSION: 1: Right breast: Multiple enhancing lesions identified. Recommend further eval uation with Second Look ultrasound. 2. Left breast: Known biopsy-proven malignant lesion is identified as a 2.6 cm heterogeneously enhancing mass containing biopsy clip artifact in the lateral c entral location. There is a nonmass enhancement area that extends inferiorly sp anning 3.2 cm. 3. Prominent lymph node in the left axilla otherwise The chest wall and axillar y portion of the examination are unremarkable. RECOMMENDATION: 1. Second Look ultrasound right breast. If there is no sonographic correlate t o the enhancing lesions in the right breast, then these are considered probably benign and follow-up breast MRI in 6 months would be recommended. 2. Appropriate medical oncology and surgical oncology management of known left breast malignancy. BI-RADS Category 0: Incomplete: Needs additional imaging evaluation.
== END 2025-04-30 07:24 | disposition home or self-care (01) ==
LOC: ANHIMG 07:26
PROVIDERS: PCP Family Medicine; Visit Provider Surgery
DX: C50.912 Malignant neoplasm of unspecified site of left female breast (principal); R92.2 Inconclusive mammogram; N64.89 Other specified disorders of breast; N63.20 Unspecified lump in the left breast, unspecified quadrant; R59.0 Localized enlarged lymph nodes
CPT/HCPCS: 77049; A9577; C8908

== ENCOUNTER 2025-05-08 08:05 | Outpatient (CLI) | payer BC, SELFPAY ==
--- NOTE | ~2025-05-08 | US_ITS ---
US breast RT limited 05/08/2025 08:33 Indication: Recent MRI of the breast demonstrates multiple enhancing lesions. Second Look ultrasound recommended. Procedure: High-resolution Limited right breast and axillary ultrasound Comparison: MRI dated 04/30/2025 and screening mammogram dated 04/30/2025 Findings: There are multiple cysts of the right breast. No suspicious masses are identified in the right breast to suggest malignancy. No significant right axillary lymphadenopathy. Impression: 1: No sonographic evidence for malignancy in the right breast. Benign findings. Routine yearly screening mammogram and regular clinical breast examination are recommended. BI-RADS CATEGORY 1 - NEGATIVE Reviewed, dictated and finalized at location B. WAGON OPERATOR Impression: 1: No sonographic evidence for malignancy in the right breast. Benign findings. Routine yearly screening mammogram and regular clinical breast examination are recommended. BI-RADS CATEGORY 1 - NEGATIVE
--- NOTE | ~2025-05-08 | US_ITS ---
US axilla LT 05/08/2025 08:32 Indication: Known left breast cancer. Procedure: High-resolution ultrasound of the left axilla Comparison: MRI breast dated 04/30/2025 Findings: There are normal-appearing lymph nodes of the left axilla with fatty hilum. No suspicious pathologic appearing lymph nodes are identified. Impression: 1: Normal left axillary lymph nodes without suspicious effacement of the fatty hilum to suggest metastatic disease. Reviewed, dictated and finalized at location B. HOSTESS Impression: 1: Normal left axillary lymph nodes without suspicious effacement of the fatty hilum to suggest metastatic disease.
--- OUTSIDE RECORDS SUMMARY | 2025-05-08 08:11 | XMS_ITS | Clinical Summary ---
Author Organization [facility] Jose mcgrath [address] Address [address] [place] [address] Care Team Providers Care Livestock Breeder Name Role Phone Unavailable Primary Care Provider Unavailabl e Social History Tobacco Use Types Packs/Day Years Used Date Smoking Tobacco: Never Assessed Comments Unknown Sex and Gender Information Value Date Recorded Sex Assigned at Not on file Legal Sex Female 10:53 AM CYLINDER LOADER Gender Identity Not on file Sexual Orientation Not on file Plan of Treatment Upcoming Encounters Date Type Department Care Team (Late st Contact Info) Description 05/08/2025 2:30 PM CYLINDER LOADER Office Visit [facility] Oncology and Hematology - [place] [address] [place] [address] Kateryna Conklin MD [address] [place] [address] Health Maintenance Due Date Last Done Comments DTAP/TDAP/TD VACCINES (1 - Tdap) 1988 HEPATITIS B VACCINES (1 of 3 - 19+ 3-dose series) 04/28 HPV/Cotest (21-29) 1990 CERVICAL CANCER SCREENING 1999 HPV/Cotest (30-65) 1999 PAP SMEAR 1999 BREAST CANCER SCREENING 2009 COLORECTAL SCREENING 2014 Colorectal Cancer Screening 2014 FIT-DNA Q 3 years 2014 FIT/FOBT Q 1 year 2014 Flex Sig/CT Colonography Q 5 years 2014 ZOSTER VACCINE (1 of 2) 2019 INFLUENZA VACCINE (#1) 2025 Insurance [facility]
== END 2025-05-08 08:06 | disposition home or self-care (01) ==
LOC: ANHFOHIMG 08:06
PROVIDERS: PCP Family Medicine; Visit Provider Surgery
DX: C50.912 Malignant neoplasm of unspecified site of left female breast (principal); R92.8 Other abnormal and inconclusive findings on diagnostic imaging of breast
CPT/HCPCS: 76642; 76882

== ENCOUNTER 2025-05-08 15:18 | Outpatient (CLI) | payer BC, SELFPAY ==
--- OUTSIDE RECORDS SUMMARY | 2025-05-08 14:30 | XMS_ITS | Encounter Summary ---
Author Organization [facility] [employer] [facility] Address [address] [place] [address] Care Team Providers Care Technical Stenographer Name Role Phone Gary Fuentes MD Primary Care Provider [phone] Encounter Details Date Type Department Care Team (Late st Contact Info) Description 05/08/2025 2:30 PM DOUGH PUNCHER Office Visit [facility] Oncology and Hematology - [place] [address] [place] [address] Kateryna Conklin MD [address] [place] [address] Malignant neoplasm of upper-outer quadrant of left breast in female, estrogen receptor positive (CMS/HCC) (Primary Dx) Social History Tobacco Use Types Packs/Day Years Used Date Smoking Tobacco: Never Smokeless Tobacco: Never Tobacco Cessation:Counseling Given: Not Answered Alcohol Use Standard Drinks/Week Comments Yes 0 (1 standard drink = 0.6 oz pur e alcohol) Ocassionally Comments Unknown Sex and Gender Information Value Date Recorded Sex Assigned at Not on file Legal Sex Female 10:53 AM DOUGH PUNCHER Gender Identity Not on file Sexual Orientation Not on file documented as of this encounter Last Filed Vital Signs Vital Sign Reading Time Taken Comments Blood Pressure 120/79 05/08/2025 2:20 PM DOUGH PUNCHER Pulse 70 05/08/2025 2:20 PM DOUGH PUNCHER Temperature 36.8 C (98.2 F) 05/08/2025 2:20 PM DOUGH PUNCHER Respiratory Rate 15 05/08/2025 2:20 PM DOUGH PUNCHER Oxygen Saturation 98% 05/08/2025 2:20 PM DOUGH PUNCHER Inhaled Oxygen Concentration - - Weight 76.3 kg (168 lb 3.2 oz) 05/08/2025 2:20 P M DOUGH PUNCHER Height 170.2 cm (5' 7) 05/08/2025 2:20 PM DOUGH PUNCHER Body Mass Index 26.34 05/08/2025 2:20 PM DOUGH PUNCHER documented in this encounter Plan of Treatment Upcoming Encounters Date Type Department Care Team (Late st Contact Info) Description 05/28/2025 4:35 PM DOUGH PUNCHER Telephone Check Up [facility] Oncology and Hematology [facility] [address] [place] [address] Jeremiah Daniels MD [address] [place] [address] Scheduled Orders Name Type Priority Associated Diagnoses Orde r Schedule CBC WITH DIFFERENTIAL Lab Routine Malignant neoplasm of upper-outer quadrant of left breast in female, estrogen receptor positive (CMS/HCC) Expected: 05/08/2025, Expires: 05/08/2026 COMPREHENSIVE METABOLIC PANEL Lab Routine Malignant neoplasm of upper-outer quadrant of left breast in female, estrogen receptor positive (CMS/HCC) Expected: 05/08/2025, Expires: 05/08/2026 FSH Lab Routine Malignant neoplasm of upper-outer quadrant of left breast in female, estrogen receptor positive (CMS/HCC) Expected: 05/08/2025, Expires: 05/08/2026 ESTRADIOL Lab Routine Malignant neoplasm of upper-outer quadrant of left breast in female, estrogen receptor positive (CMS/HCC) Expected: 05/08/2025, Expires: 05/08/2026 documented as of this encounter Visit Diagnoses Diagnosis Malignant neoplasm of upper-outer quadrant of left breast in female, estrogen receptor positive (CMS/HCC)- Primary documented in this encounter Care Teams Technical Stenographer Relationship Specialty Start Date End Date Gary Fuentes MD [address] [place] [address] PCP - General Family Practice 05/08/25 documented as of this encounter
[2025-05-08 15:32] LABS: Hematocrit 42.0 % (37.0-47.0); Hemoglobin 13.3 g/dL (12.0-15.0); Immature Granulocyte Percent A 0.2 % (0-0.5); Lymphocytes Absolute Auto 2.22 K/mm3 (0.9-3.2); Mean Corpuscular HGB Conc 31.7 g/dl (32-36); Mean Corpuscular Hemoglobin 28.2 pg (26-34); Mean Corpuscular Volume 89.0 fl (80-100); Nucleated Red Blood Cells Absolute Auto 0.000 K/mm3 (0.0-0.012); Nucleated Red Blood Cells Perc 0.0 % (0.0-0.2); Platelet Count Result 264 k/mm3 (150-375); Red Blood Count 4.72 M/mm3 (4.2-5.4); White Blood Count 6.6 K/mm3 (4.5-10.0)
--- OUTSIDE RECORDS SUMMARY | 2025-05-08 16:03 | XMS_ITS | Clinical Summary ---
Author Organization [facility] Jose [address]ose Address [address] [place] [address] Care Team Providers Care Devops Consultant Name Role Phone Gary Fuentes MD Primary Care Provider Allergies No known active allergies Medications levothyroxine 25 mcg tablet Take 1 Tablet by mouth daily. 02/10/2025 Active Encounters Date Type Department Care Team Description 05/08/2025 2:30 PM GEOPHYSICAL OBSERVER Office Visit [facility] Oncology and Hematology - [place] [address] [facility] [address] [place] [address] Kateryna Conklin MD Malignant neoplasm of upper-outer quadrant of left breast in female, estrogen receptor positive (CMS/HCC) (Primary Dx) from Last 3 Months Family History Medical History Relation Name Comments Diabetes Brother 1 No Known Problems Brother 2 Diabetes Brother 3 No Known Problems Brother 4 Lung Cancer Brother 5 No Known Problems Child 1 No Known Problems Child 2 Diabetes Father Lung Cancer Father Diabetes Mother Heart Disease Mother Diabetes Sister 1 Diabetes Sister 2 No Known Problems Sister 3 Esophageal Cancer Sister 4 Relation Name Status Comments Brother 1 Alive Brother 2 Alive Brother 3 Alive Brother 4 Alive Brother 5 Child 1 Alive Child 2 Alive Father Mother Sister 1 Alive Sister 2 Alive Sister 3 Alive Sister 4 Alive Social History Tobacco Use Types Packs/Day Years Used Date Smoking Tobacco: Never Smokeless Tobacco: Never Tobacco Cessation:Counseling Given: Not Answered Alcohol Use Standard Drinks/Week Comments Yes 0 (1 standard drink = 0.6 oz pur e alcohol) Ocassionally Comments Unknown Sex and Gender Information Value Date Recorded Sex Assigned at Not on file Legal Sex Female 10:53 AM GEOPHYSICAL OBSERVER Gender Identity Not on file Sexual Orientation Not on file Last Filed Vital Signs Vital Sign Reading Time Taken Comments Blood Pressure 120/79 05/08/2025 2:20 PM GEOPHYSICAL OBSERVER Pulse 70 05/08/2025 2:20 PM GEOPHYSICAL OBSERVER Temperature 36.8 C (98.2 F) 05/08/2025 2:20 PM GEOPHYSICAL OBSERVER Respiratory Rate 15 05/08/2025 2:20 PM GEOPHYSICAL OBSERVER Oxygen Saturation 98% 05/08/2025 2:20 PM GEOPHYSICAL OBSERVER Inhaled Oxygen Concentration - - Weight 76.3 kg (168 lb 3.2 oz) 05/08/2025 2:20 P M GEOPHYSICAL OBSERVER Height 170.2 cm (5' 7) 05/08/2025 2:20 PM GEOPHYSICAL OBSERVER Body Mass Index 26.34 05/08/2025 2:20 PM GEOPHYSICAL OBSERVER Plan of Treatment Upcoming Encounters Date Type Department Care Team (Late st Contact Info) Description 05/28/2025 4:35 PM GEOPHYSICAL OBSERVER Telephone Check Up [facility] Oncology and Hematology [facility] [address] [facility] [address] [place] [address] Jeremiah Daniels MD [address] [facility] [address] [place] [address] Health Maintenance Due Date Last [...] 2014 ZOSTER VACCINE (1 of 2) 2019 Preventative Visit- Commercial 06/27/2024 INFLUENZA VACCINE (#1) 2025 Insurance [facility] [employer] Care Teams Devops Consultant Relationship Specialty Start Date End Date Gary Fuentes MD [address] [place] [address] PCP - General Family Practice 05/08/25
[2025-05-08 16:23] LABS: Alanine Aminotransferase 39 U/L (6-35); Albumin Level 4.4 g/dL (3.5-5.1); Alkaline Phosphatase 94 U/L (38-126); Anion Gap 7 mmol/L (4-12); Aspartate Amino Transferase 52 U/L (14-36); Bilirubin,Total 0.4 mg/dL (0.2-1.3); Blood Urea Nitrogen 16 mg/dL (7-17); Calcium 9.3 mg/dL (8.4-10.2); Carbon Dioxide 28 mmol/L (22-30); Chloride 101 mmol/L (98-107); Estimated Glomerular Filt Rate > 60; Glucose 91 mg/dL (65-110); Potassium 4.5 mmol/L (3.4-5.0); Sodium 136 mmol/L (137-145); Total Protein 7.7 g/dL (6.3-8.2)
[2025-05-09 12:08] LABS: FSH 27.9 mIU/mL (.)
[2025-05-14 15:09] LABS: Estradiol, Sensitive <2.5 pg/mL (.)
== END 2025-05-08 15:19 | disposition home or self-care (01) ==
LOC: ANHLAB 15:19
PROVIDERS: PCP Family Medicine; Visit Provider Internal Medicine Hematology & Oncology
DX: C50.412 Malignant neoplasm of upper-outer quadrant of left female breast (principal); Z17.0 Estrogen receptor positive status [ER+]
CPT/HCPCS: 36415; 80053; 82670; 83001; 85025

== ENCOUNTER 2025-06-03 11:17 | Outpatient (CLI) | payer BC, SELFPAY | END 2025-06-03 11:18 | disposition home or self-care (01) | LOC: ANHSURGERY 11:18 | PROVIDERS: PCP Family Medicine; Visit Provider Surgery | DX: Z01.818 Encounter for other preprocedural examination (principal); C80.1 Malignant (primary) neoplasm, unspecified | CPT/HCPCS: 36415; 86850; 86900; 86901 ==

== ENCOUNTER 2025-06-05 00:51 | Day surgery (SDC) | payer BC, SELFPAY ==
[2025-05-31 14:46] VITALS: BMI 26.3
--- NOTE | 2025-05-31 14:57 | PC.NURSE ---
[facility] has started construction of its new state of the art ER which will open Spring 2026. With this, we anticipate parking may be a challenge for some our surgical patients and families. Parking spaces are limited but are available for all Surgical, obstetrics, and ER patients sharing this lot. If you arrive and find you are having a hard time finding a parking space, please note that we understand the challenges, please drive around the hospital and park near Hospital Entrance 1. When you enter this entrance, you can ask a volunteer to direct or take you back to the surgical waiting area to check in. We appreciate everyone?s understanding of these expected challenges while we build for your future. Report to the Outpatient Waiting Room, entrance under the green pavilion located off [address], at time _0700 on date _06/05/25 . Planned Procedure Time: ___0900 .? Time changes happen often and if your time is changed the preop area will call you the afternoon before. - You and your visitor will be asked to self-screen and do not enter if you have any COVID symptoms. Please call surgeon if you need to reschedule. - A mask is optional within the hospital at this time. Patients may have clear liquids (water, carbonated beverages, clear teas, apple juice) until 3 hours prior to surgery with a maximum of 20 ounces. - No food from midnight until time of surgery and no smoking, or chewing tobacco (or any form of nicotine). No chewing gum, candy or mints. - Infants may have breast milk until 4 hours before surgery, infant formula 6 hours prior to surgery. - Children will be allowed to drink immediately following surgery.? If applicable, please bring a bottle or sippy cup to assist with drinking. Juice, water, soda, and popsicles are readily available.? For infants on formula, please bring formula the day of surgery.? Pacifiers are allowed. Take only the following medications with a SIP of water on the morning of surgery: ___None DO NOT STOP ANY OF YOUR OTHER PRESCRIPTION MEDICATIONS PRIOR TO SURGERY EXCEPT THE FOLLOWING Hold all vitamins and supplements for 3 days per anesthesiologist. Medications to discontinue per physician ____N/A Date to take last dose_N/A Please no make-up, nail yi, hairspray, perfume, deodorant, or body powder the day of surgery.? No jewelry (including any body piercings) or valuables the day of surgery, leave them at home.? Please take a shower or bath the night before, or the morning of, surgery with an antibacterial soap.? Wear comfortable, loose fitting clothing.? Children are encouraged to wear pajamas. - Jewelry must be removed prior to entering the operating room.? Rings and piercings that are not removed may be cut off. - The hospital will not accept responsibility for valuables.? - Please leave all valuables, including medications, at home the day of surgery. If you are going home after surgery, a licensed drivers' cash clerk must drive you home.? - NO public transportation without another adult if you receive anesthesia. - We recommend that an adult stay with you for 24 hours following discharge. - We also recommend that you do not drive, make important decision, drink alcoholic beverages, or take any drugs that were not prescribed by your health care provider for at least 24 hours after your discharge time. For Pediatric surgeries, we recommend two adults accompany the child home. Follow any additional instructions given to you from your surgeon. Telephone instructions given to __Mary Ellen and asked if any additional questions and then verbalized understanding. Patient advised to call surgeon office or pre surgery nurse liaison [phone] if any additional questions.
--- OUTSIDE RECORDS SUMMARY | 2025-06-04 09:52 | XMS_ITS | Encounter Summary ---
Author Organization [facility] Address [address] [place] [address] Care Team Providers Care Hat Blocking Machine Operator Name Role Phone Gary Fuentes MD Primary Care Provider [phone] Reason for Referral * PET Scan (Routine) - Pending Review Specialty Diagnoses / Procedures Referred By Contac t Referred To Contact Radiology Diagnoses Malignant neoplasm of upper-outer quadrant of left breast in female, estrogen receptor positive (CMS/HCC) Procedures PET TUMOR OR INFECTION IMG W CT SKB Kateryna Dubois MD [address] [place] [address] Phone: tel: fax: [facility] [id number] [place] [phone] Phone: tel: Referral ID Status Reason Start Date Expiration Date Visits Requested Visits Authorized [id number] Pending Review CRS to Schedule 06/03/2025 1 1 TAKER Reason for Visit * PET Scan (Routine) - Pending Review Specialty Diagnoses / Procedures Referred By Contac t Referred To Contact Radiology Diagnoses Malignant neoplasm of upper-outer quadrant of left breast in female, estrogen receptor positive (CMS/HCC) Procedures PET TUMOR OR INFECTION IMG W CT SKKateryna Lemus MD [address] [place] [address] Phone: tel: fax: [facility] [address] [place] [address] Phone: tel: Referral ID Status Reason Start Date Expiration Date Visits Requested Visits Authorized [id number] Pending Review CRS to Schedule 06/03/2025 1 1 Encounter Details Date Type Department Care Team (Late st Contact Info) Description 06/04/2025 9:52 AM CALL TAKER Hospital Encounter [facility] [address] [place] [address] Kateryna Conklin MD [address] [place] [address] Arrived Social History Tobacco Use Types Packs/Day Years Used Date Smoking Tobacco: Never Smokeless Tobacco: Never Alcohol Use Standard Drinks/Week Comments Yes 0 (1 standard drink = 0.6 oz pur e alcohol) Ocassionally Comments Unknown Sex and Gender Information Value Date Recorded Sex Assigned at Not on file Legal Sex Female 10:53 AM CALL TAKER Gender Identity Not on file Sexual Orientation Not on file documented as of this encounter Progress Notes * Chani Felix, EMY - 06/04/2025 10:30 AM CST IMAGING SERVICES- NUCLEAR MEDICINE MEDICATION and FLUSH PROTOCOL [facility] THIS PROTOCOL IS IMPLEMENTED WHEN AN APPROVED PROVIDER ORDERS A NUCLEAR MEDICINE STUDY BY PAPER OR ELECTRONIC ORDER. The technologist will order all medication that appears on the MAR using ???Per Protocol or Standing - Cosign Required?? . Enter the protocol in the patient's electronic health record using smartphrase: .nucmedNewBridge PharmaceuticalsSprotocol Communication Orders: For ordered imaging procedures requiring intravenous access : Initiate a peripheral IV, if not already in place, and discontinue IV prior to discharge (if outpatient). Medication Orders: Sodium chloride 0.9% (normal saline) flush 10 mLs PRN for saline lock or medication administration. Adult Procedures & Dosages: The dosage to be dispensed may be specified as either: a single standard dosage in mCi or ?Ci or asa dosage range in mCi or ?Ci.The dispensed dosage must be within one of the following allowable parameters: Single Standard Dosage: ?? 20% of the single standard dosage For example, for bone scintigraphy, the adult dosage is 25 mCi. Thus, the injected dosage can be between 20 mCi and 30 mCi. Dosage Range: must be within the prescribed dosage range For example, for Xe-133 (Xenon-133), the adult dosage range is 3-30mCi. Thus, the patient dosage must be at least 3.0 mCi and up to 30mCi. Note: based upon a patient's special condition(s) the recommended dosage may be increased or decreased as needed under the direction of an authorized user physician. Doses may be decreased as needed during a Technetium Shortage by 20-50% to ensure availability while still providing quality exams. Pediatric Procedures & Dosages: The dosage to be dispensed is a single standard dosage in mCi or ?Ci . The dispensed dosage must be within the following allowable parameter: Single Standard Dosage: The administered activity should be based on the patient's weight. Once theweight-based dosage is calculated, the administered activity can be within a ?? 20% range of the calculated single standard dosage. However, the dosage cannot be greater than the adult reference activity unless otherwise directed by an authorized-user physician. Note: based upon a patient's special condition(s) the recommended dosage may be increased or decreased as needed under the direction of an authorized user physician. Procedure Specific Medications: PROCEDURE DOSAGE Bone Marrow Imaging Cr99p-Pnhxsq Colloid (Dtnatfzozm53a-aofrgz colloid), Administer 8mCi Rs20s-vwwujq colloid, IV, ONE TIME. Bone Scan Imaging (Whole Body, Limited, 3-Phase, or SPECT) Rq22w-WZT (Grreekigne17l-yzgguengp), Administer 25mCi, IV, ONE TIME. Brain Imaging Tc99m- Ceretec (Blhoowbvnq23i-mejnwwwjgpb), Administer 20mCi, IV, ONE TIME. Brain SPECT Imaging Tm19n-Jxwwtnq (Zyiaxbaina00m- exametazine), Administer 20mCi, IV, ONE TIME. Captopril Renal Imaging At02x-HFK9 (Juhdhnomcv97q- mertiatide), Administer 5mCi, IV, ONE TIME. AND Administer Captopril 50mg, PO, ONE TIME Cerebral Flow Imaging Tc99m- Ceretec (Jqqzemrmfr19x- exametazine), Administer 20mCi, IV, ONE TIME Cisternogram Imaging In-111 DTPA (Indium-111 pentetate), Neuroradiologist to administer 500uCi, Intrathecally, ONE TIME. Diuretic Renal Imaging Nu78n-TNV9 (Anrbxegmvv36u- mertiatide), Administer 5mCi, IV, ONE TIME. AND Administer Lasix (furosemide), 20mg/2ml, IV push over 2 minutes, ONE TIME DaTscan Imaging . I-123 Ioflupane (Iodine-123 ioflupane), Administer 5mCi, IV, ONE TIME. AND Administer SSKI (Potassium Iodide) drops, 130mg, Orally, ONE TIME 30 minutes prior to radiopharmaceutical injection Diverticulum/Meckel's Imaging Tc-99m sodium pertechnetate (Agperrbktf41d-khenth pertechnetate), Administer 15mCi, IV, ONE TIME. Ga-67 Citrate - Cancer Imaging Ga-67 Citrate (Gallium-67 Citrate), Administer 7mCi, IV, ONE TIME. Ga-67 Citrate - Lymphoma SPECT Imaging Ga-67 Citrate (Gallium-67 Citrate), Administer 10mCi, IV, ONE TIME. Ga-67 Citrate - Whole Body Imaging Ga-67 Citrate (Gallium-67 Citrate), Administer 5mCi, IV, ONE TIME. Gastric Empty Imaging - Solid Meal Xt44t-Dbvihf Colloid (Sbyqarixki07s-zklimp colloid), Administer 0.5 mCi in 4 oz egg beaters, Orally, ONE TIME. GFR Imaging Pl51j-JCNJ (Ciqomsnvhu04q- pentetate), Administer 3mCi, IV, ONE TIME. GI Bleed Imaging Tc-99m sodium pertechnetate (Idvawccnop47l- sodium pertechnetate) Ultratag, Administer 25mCi heparanized RBCs, IV, ONE TIME. Hemangioma Imaging Tc-99m sodium pertechnetate (Tvbxqbnpve04l- sodium pertechnetate) Ultratag, Administer 25mCi heparanized RBCs, IV, ONE TIME. Hepatobiliary Scan Imaging Tc-99m Mebrofenin (Emrodovmlo25j-emfqacbkok), Administer 5 mCi IV, ONE TIME Hepatobiliary Scan with Ejection Fraction Imaging Tc-99m Mebrofenin (Zcsrjkloen94x-ipuugdinjr), Administer 5mCi IV, ONE TIME. AND For immediate use -Give 1 bottle of Ensure 8 oz. (237 mL) OR Only if patient is unable to drink ensure, For immediate use - If patient is unable to drink Ensure, Sincalide (Kinevac) 0.02 mcg/kg IV, ONE TIME, diluted with NS to a total infused volume of 10 mLs.Infuse over 5 minutes. In-111 WBC Imaging In-111 oxyquinoline (Indium-111 oxyquinoline), Administer at least 300uCi, up cy668kUd, heparanized WBC, IV, ONE TIME. Liver Imaging Dg93s-Jhtbjs Colloid (Fanooympyi90f-jxhqpm colloid), Administer 5mCi, IV, ONE TIME. Lung Perfusion - Patient Imaging Tc-99m MAA (Ubmikyirwt02b- macroaggregated albumin), Administer 2.5mCi for patients , IV, ONE TIME. Lung Perfusion Imaging Tc-99m MAA (Gfqnvyalfg19p-rufcuarxgwuypdd albumin), Administer 5mCi, IV, ONETIME. Lung Ventilation Imaging Xe-133 (Xenon-133), Administer at least 3 mCi, up to 30 mCi, inhalation, ONE TIME. Lymphoscintigraphy - Breast Cancer, Next Day Surgery Wm88w-Vbpxyfvkmc (Dktigmsjje20v- tilmanocept),Administer 2mCi, intradermal, ONE TIME. Lymphoscintigraphy - Breast Cancer, Same Day Surgery Lc37d-Ofyttgdsse (Ygwtjfbuus26u- tilmanocept),Administer 500uCi, intradermal, ONE TIME. Lymphoscintigraphy - Malignant Melanoma, Next Day Surgery Rt93t-Dgfppqlcyy (Tgfvzpdxgj53y- tilmanocept), Administer 4mCi, intradermal, ONE TIME. Lymphoscintigraphy - Malignant Melanoma, Same Day Surgery Bo16w-Livrbpsvvf (Qsdrsjyvza49t- tilmanocept), Administer 1mCi, intradermal, ONE TIME. MIBG Imaging I-123 MIBG (Adreview) (Iodine-123 iobenguane), Administer 10mCi, IV, ONE TIME. Microsphere Mapping Tc-99m MAA (Ohqakvhasa08z-idlkvesoqulrzwx albumin), Interventional Radiologist to administer 5 mCi intra-arterial via catheter, ONE TIME. MUGA/RVG Imaging Tc-99m sodium pertechnetate (Mvfkqweopv52e- sodium pertechnetate)Ultratag, Administer 22mCi heparanized RBCs, IV, ONE TIME. Myocardial Rest Imaging - SPECT Imaging ([facility]) Tg60r-Ayqgtyehq (Sxvocvwglz56m-Yzypyukir), Administer 6mCi, IV, ONE TIME. OR If Tc99m is unavailable: Tl-201 (Thallium Chloride-201), Administer 3mCi, IV, ONE TIME. Myocardial Stress - SPECT Imaging ([facility]) Yh86a-Msszydsvc (Cblitmqwky24a- Sestamibi), Administer 18mCi, IV, ONE TIME. OR If Tc99m is unavailable: Tl-201 (Thallium Chloride-201), Administer 3mCi, IV, ONE TIME. Administer 1mCi, IV, ONE TIME after stress imaging. Myocardial Rest Imaging - SPECT Imaging ([facility])) No50b-Sxzwambse (Lzyuujqixu77k-Rfmkrkusz), Administer 10mCi, IV, ONE TIME. OR If Patient is over 300lbs or Women <5'5 and >260lbs or Men <5'10 and >275lbs: Ix38g-Mrrlxuqjj (Skytjdfmkz87x-Kfoxabxdr), Administer 35mCi, IV, ONE TIME. Myocardial Stress Imaging - SPECT Imaging ([facility])) Tk33i-Dfuaeezgb(Vxfcwciwmv53v-Ztqjydkjt), Administer 30mCi, IV, ONE TIME. OR If Patient is over 300lbs or Women <5'5 and >260lbs or Men <5'10 and >275lbs: Sn76n-Dtngucrnt (Senkhemzlq96e-Qtzejhvio), Administer 35mCi, IV, ONE TIME. Myocardial Viability Imaging Tl-201 (Thallium Chloride-201), Administer 3mCi, IV, ONE TIME. Octreoscan - Whole Body Imaging In-111 Pentetreotide (Indium-111 Pentetreotide), Administer 6mCi, IV, ONE TIME. Octreoscan - SPECT Imaging In-111 Pentetreotide (Indium-111 Pentetreotide), Administer 6mCi, IV, ONE TIME. Parathyroid Imaging Zz90a-Bntfajagx (Eerarkngrm37v-stndubkor), Administer 20mCi, IV, ONE TIME. Renal Cortical Imaging Db77v-YQGO (Technetium Tc99m Succimer), Administer 5mCi, IV, ONE TIME. Renal Perfusion Imaging Ng40b-DYB7 (Lvfnjpgdqp11t- mertiatide), Administer 5mCi, IV, ONE TIME Renogram Imaging Ss65r-PQD9 (Sgnktlukar23w- mertiatide), Administer 5mCi, IV, ONE TIME Renogram with Flow Imaging Nj75v-PUN5 (Qvsapeitbh88p- mertiatide), Administer 5mCi, IV, ONE TIME Xf36q-FTW Imaging Bu63y-Ssqrkfh (Eobdixrdjv39v- exametazine), Administer at least 5mCi, up to 25mCi, heparanized WBC, IV, ONE TIME. Testicular Imaging Tc-99m sodium pertechnetate (Ppchznzpne15a- sodium pertechnetate), Administer 15mCi, IV, ONE TIME. Thyroid Imaging Tc-99m sodium pertechnetate (Szvfnwokjz72c- sodium pertechnetate), Administer 15mCi, IV, ONE TIME. Thyroid Scan/Uptake I-123 sodium iodide (Iodide-123 sodium iodide), Administer 600 uCi, Orally, ONETIME. Whole Body I-131 Imaging I-131 sodium iodide (Iodide-131 sodium iodide), Administer 5 mCi, Orally, ONE TIME. Whole Body FDG Imaging D33-MlpwjktobdXckxrpg (FDG) Administer 10 Mci IV, ONE TIME. Whole Body Axumin Imaging F18 Axumin- (F18- Fluciclovine), Administer 10 mCi, IV, ONE TIME. Whole Body Dotatate Imaging Ga 68 Dotatate (Ga-68 Dotatate), Administer 5 Mci, IV, ONE TIME. Copper-64 Dotatate (Cu-64 Dotatate), Administer 4 mCi, IV, ONE TIME Whole Body PET PSMA Imaging F18 Piflufolastat (Pylarify) Administer 9mci, IV, ONE time. Ga68 Gozetotide (Illucix), Administer 5 Mci, IV, ONE time Whole Body PET Breast Imaging F18 Fluorestradiol (Cerianna) F18 Fluorestradiol (Cerianna), Administer 6mci, IV One time Amyloid PET Imaging, NEURACEQ (Florbetaben F18) NEURACEQ (Florbetaben F18)Amyloid PET Imaging. Doseis 8.1mci, IV, One time Amyloid PET imaging, AMYVID (F18-Loco Florbetapir F 18) AMYVID (F18-Loco Florbetapir F 18) Dose is 10mci, IV One time Initiating Department: Imaging Services - Nuclear Medicine Approved by: aCndy Lawrence MD Date: 07/2024 Approved by: P&T Committee Date: 05/2024 Approved by: Medical Executive Committee Date: 06/2024 Approved by: KATIE Michael Date: 07/2024 TAKER documented in this encounter Plan of Treatment Upcoming Encounters Date Type Department Care Team (Late st Contact Info) Description 06/11/2025 4:30 PM CALL TAKER Telephone Check Up [facility] Oncology and Hematology - [place] [address] [facility] [address] [place] [id number] Jeremiah Daniels MD [address] [facility] [address] [place] [address] documented as of this encounter Procedures Procedure Name Priority Date/Time Associated Diagnosis Comments PET TUMOR OR INFECTION IMG W CT SKB MDTH Routine 06/04/2025 11:49 AM CALL TAKER Malignant neoplasm of upper-outer quadrant of left breast in female, estrogen receptor positive (CMS/HCC) POC GLUCOSE Routine 06/04/2025 10:26 AM CALL TAKER documented in this encounter Results * PET TUMOR OR INFECTION IMG W CT SKB MD (06/04/2025 11:49 AM CALL TAKER) Anatomical Region Laterality Modality Positron Emissio n Tomography (PET) 06/04/2025 11:5 1 AM CALL TAKER Impressions 06/04/2025 1:55 PM CALL TAKER IMPRESSION: Asymmetric density in the left lateral inferior breast with only minimal FDG avidity may be invasive breast cancer described in the history No evidence of metastatic disease DICTATION LOCATION: Location 7 - [facility] Narrative 06/04/2025 1:55 PM CALL TAKER PET/COMPUTED TOMOGRAPHY FUSION IMAGING - SKULL BASE TO MID THIGH DATE: 06/04/2025 11:49 AM HISTORY: Breast cancer, invasive, stage I/II/III, initial workup, Abnl MRI tracking inferior to left breast mass. Malignant neoplasm of upper-outer quadrant of left breast in female, estrogen receptor positive (CMS/HCC); Malignant neoplasm of upper-outer quadrant of left breast in female, estrogen receptor positive (CMS/HCC) COMPARISON: None RADIOISOTOPE: 10.3 mCi fluorine 18 labeled FDG with an injection to scan time of 59 minutes. HEIGHT: 5 foot 7 inches WEIGHT: 168 pounds BASELINE PARAMETERS: Liver parenchymal tissue SUV/max is 2.6. Mediastinal parenchymal tissue SUV/max is 2.2. Blood glucose level is 87 mg/dL. TECHNIQUE: After intravenous administration of radioisotope, the patient rested quietly for approximately one hour. Skull base to mid thigh PET/computed tomography fusion imaging was then performed. The examination was performed with the adjustment of mA according to the patient size and/or the use of Iterative Reconstruction Technique. FINDINGS: There is no nasopharyngeal oral pharyngeal or hypopharyngeal mass. No cervical lymphadenopathy is seen. No supraclavicular lymphadenopathy is identified. No axillary masses are identified. Bilateral non-FDG avid axillary lymph nodes are present. Descending into the chest is no hilar or mediastinal mass. There is asymmetric density left inferior lateral breast with an SUV of 1.0. Lung windows show no infiltrate in either lung. The upper abdomen shows hepatic steatosis. The spleen is unremarkable. No adrenal or pancreas lesion is seen. The gallbladder shows gallstones. The kidneys secrete FDG normally. No retroperitoneal or mesenteric mass. An umbilical hernia contains only fat The pelvis shows no FDG avid pelvic mass. There is normal FDG accumulation in the urinary bladder. The uterus is unremarkable. The inguinal soft tissues and proximal thighs are unremarkable. INCIDENTAL FINDINGS: None. Procedure Note Josemanuel Humphries MD - 06/04/2025 PET/COMPUTED TOMOGRAPHY FUSION IMAGING - SKULL BASE TO MID THIGH DATE: 06/04/2025 11:49 AM HISTORY: Breast cancer, invasive, stage I/II/III, initial workup, Abnl MRI tracking inferior to left breast mass. Malignant neoplasm of upper-outer quadrant of left breast in female, estrogen receptor positive (CMS/HCC); Malignant neoplasm of upper-outer quadrant of left breast in female, estrogen receptor positive (CMS/HCC) COMPARISON: None RADIOISOTOPE: 10.3 mCi fluorine 18 labeled FDG with an injection to scan time of 59 minutes. HEIGHT: 5 foot 7 inches WEIGHT: 168 pounds BASELINE PARAMETERS: Liver parenchymal tissue SUV/max is 2.6. Mediastinal parenchymal tissue SUV/max is 2.2. Blood glucose level is 87 mg/dL. TECHNIQUE: After intravenous administration of radioisotope, the patient rested quietly for approximately one hour. Skull base to mid thigh PET/computed tomography fusion imaging was then performed. The examination was performed with the adjustment of mA according to the patient size and/or the use of Iterative Reconstruction Technique. FINDINGS: There is no nasopharyngeal oral pharyngeal or hypopharyngeal mass. No cervical lymphadenopathy is seen. No supraclavicular lymphadenopathy is identified. No axillary masses are identified. Bilateral non-FDG avid axillary lymph nodes are present. Descending into the chest is no hilar or mediastinal mass. There is asymmetric density left inferior lateral breast with an SUV of 1.0. Lung windows show no infiltrate in either lung. The upper abdomen shows hepatic steatosis. The spleen is unremarkable. No adrenal or pancreas lesion is seen. The gallbladder shows gallstones. The kidneys secrete FDG normally. No retroperitoneal or mesenteric mass. An umbilical hernia contains only fat The pelvis shows no FDG avid pelvic mass. There is normal FDG accumulation in the urinary bladder. The uterus is unremarkable. The inguinal soft tissues and proximal thighs are unremarkable. INCIDENTAL FINDINGS: None. IMPRESSION: Asymmetric density in the left lateral inferior breast with only minimal FDG avidity may be invasive breast cancer described in the history No evidence of metastatic disease DICTATION LOCATION: Location [address] [place] [address] us Kateryna Conklin MD PE ORDERABLES Final Res ult * POC GLUCOSE (06/04/2025 10:26 AM CALL TAKER) GLUCOSE POC 87 74 - 99 mg/dL 06/04/2025 10:26 AM CALL TAKER [facility] - [facility] IM[facility] SPECIMEN SOURCE, GLUCOSE POC Whole Blood 06/04/2025 10:26 AM CALL TAKER [facility] [place] Blood, whole 06/04/2025 10:2 6 AM CALL TAKER 06/04/2025 10:32 AM CALL TAKER us Kateryna Conklin MD POINT OF CARE TESTING Fin al Result [facility] [place] CLIA#[id number] [place] [address] documented in this encounter Visit Diagnoses Diagnosis Malignant neoplasm of upper-outer quadrant of left breast in female, estrogen receptor positive (CMS/HCC) documented in this encounter Administered Medications Active Administered Medications - up to 3 most recent administrations Medication Order MAR Action Action Date Dose Rate Site sodium chloride flush injection 10 mL 10 mL, IV, SEE ADMIN INSTRUCTIONS, Starting on Tue06/04/25 at 1034, Until Discontinued, Routine Given 06/04/2025 10:24 AM CALL TAKER 10 mL Right Arm documented in this encounter Care Teams Hat Blocking Machine Operator Relationship Specialty Start Date End Date Gary Fuentes MD [address] [place] [address] PCP - General Family Practice 05/08/25 documented as of this encounter
[2025-06-05] VITALS (8 sets, daily range): BP systolic 131–156; BP diastolic 63–90; PULSE 62–96; RESP 11–18; TEMP 36.3–37.1; O2SAT 96–100; BMI 26.6
--- NOTE | ~2025-06-05 | NM_ITS ---
EXAM/PROCEDURE: NM sentinel node inject only HISTORY: mal dmitry of lt breast COMPARISON: None available. TECHNIQUE: [place] node injection performed by Dr. Gonzalez. Dose: 0.983 mCi technetium lymphocyte administered at 0935 hours. IMPRESSION: [place] node injection per Dr. Dr. Gonzalez.. No radiologist present. See also operative/surgical notes for complete evaluation. Reviewed, dictated and finalized at location [facility]. [facility]
--- OUTSIDE RECORDS SUMMARY | 2025-06-05 00:53 | XMS_ITS | Clinical Summary ---
Author Organization [facility] [place] [facility] Jose mcgrath Albino Address [address] [place] [address] Care Team Providers Care Websphere Architect Name Role Phone Gary Fuentes MD Primary Care Provider [phone] Allergies No known active allergies Medications levothyroxine 25 mcg tablet Take 1 Tablet by mouth daily. 02/10/2025 Active Active Problems No known active problems Encounters Date Type Department Care Team Description 06/04/2025 9:52 AM [place] Hospital Encounter [facility] Imaging Services [facility] [address] [place] [address] Kateryna Conklin MD Arrived 05/28/2025 4:35 PM [place] Telephone Check Up [facility] [place] [facility] Oncology and Hematology [facility] [address] [place] [id number] Jeremiah Daniels MD 05/14/2025 External Device Data ST[place] ABSTRACTION Provider, Abstract 05/14/2025 External Device Data [place] ABSTRACTION Provider, Abstract 05/14/2025 External Device Data [place] ABSTRACTION Provider, Abstract 05/08/2025 2:30 PM [place] Office Visit [facility] [place] [facility] Oncology and Hematology [facility] [address] [place] [address] Kateryna Conklin MD Malignant neoplasm of upper-outer [...] on file Legal Sex Female 10:53 AM [place] Gender Identity Not on file Sexual Orientation Not on file Last Filed Vital Signs Vital Sign Reading Time Taken Comments Blood Pressure 120/79 05/08/2025 2:20 PM [place] Pulse 70 05/08/2025 2:20 PM [place] Temperature 36.8 C (98.2 F) 05/08/2025 2:20 PM [place] Respiratory Rate 15 05/08/2025 2:20 PM [place] Oxygen Saturation 98% 05/08/2025 2:20 PM [place] Inhaled Oxygen Concentration - - Weight 76.3 kg (168 lb 3.2 oz) 05/08/2025 2:20 P M [place] Height 170.2 cm (5' 7) 05/08/2025 2:20 PM [place] Body Mass Index 26.34 05/08/2025 2:20 PM [place] Plan of Treatment Upcoming Encounters Date Type Department Care Team (Late st Contact Info) Description 06/11/2025 4:30 PM [place] Telephone Check Up [facility] [place] [facility] Oncology and Hematology - [place] [address] [facility] [address] [place] [address] Jeremiah Daniels MD [address] [facility] [address] [place] [address] Health Maintenance Due Date Last Done Comments Pre-Diabetes and Diabetes Screening 1970 DTAP/TDAP/TD VACCINES (1 - Tdap) 1988 HEPATITIS [...] of 2) 2019 INFLUENZA VACCINE (#1) 2025 Procedures Procedure Name Priority Date/Time Associated Diagnosis Comments PET TUMOR OR INFECTION IMG W CT SKB MDTH Routine 06/04/2025 11:49 AM [place] Malignant neoplasm of upper-outer quadrant of left breast in female, estrogen receptor positive (CMS/HCC) POC GLUCOSE Routine 06/04/2025 10:26 AM [place] from Last 3 Months Results * PET TUMOR OR INFECTION IMG W CT SKB MD (06/04/2025 11:49 AM [place]) Anatomical Region Laterality Modality Positron Emissio n Tomography (PET) 06/04/2025 11:5 1 AM [place] Impressions 06/04/2025 1:55 PM [place] IMPRESSION: Asymmetric density in the left lateral inferior breast with only minimal FDG avidity may be invasive breast cancer described in the history No evidence of metastatic disease DICTATION LOCATION: Location [address] [place] [address] 06/04/2025 1:55 PM [place] PET/COMPUTED TOMOGRAPHY FUSION IMAGING - SKULL BASE [...] evidence of metastatic disease DICTATION LOCATION: Location [address] [place] [address] Kateryna Conklin MD PE ORDERABLES Final Res ult * POC GLUCOSE (06/04/2025 10:26 AM [place]) GLUCOSE POC 87 74 - 99 mg/dL 06/04/2025 10:26 AM [place] [facility] SPECIMEN SOURCE, GLUCOSE POC Whole Blood 06/04/2025 10:26 AM [facility] Blood, whole 06/04/2025 10:2 6 AM [place] 06/04/2025 10:32 AM [place] Kateryna Conklin MD POINT OF CARE TESTING Fin al Result [facility] - [facility] CLIA#[id number] [place] [address] from Last 3 Months Insurance [facility] FED[employer]AL [facility] [employer] Care Teams Websphere Architect Relationship Specialty Start Date End Date Gary Fuentes MD [address] [place] [address] PCP - General Family Practice 05/08/25
--- OUTSIDE RECORDS SUMMARY | 2025-06-05 00:53 | XMS_ITS | Clinical Summary ---
Author Organization [facility] [place] Address [address] [place] [address] Care Team Providers Care Sales Representative [employer] Name Role Phone Gary Fuentes MD Primary Care Provider [phone] Allergies No known active allergies Medications [id number] [...] patient's age to complete this topic Insurance [facility] Care Teams Sales Representative [employer] Relationship Specialty Start Date End Date Gary Fuentes MD [address] [place] [address] PCP - General FAMILY PRACTICE 11/22/19
--- OUTSIDE RECORDS SUMMARY | 2025-06-05 00:53 | XMS_ITS | Encounter Summary ---
Author Organization [facility] Address [address] [place] [address] Care Team Providers Care Retail Event Assistant Name Role Phone Gary Fuentes MD Primary Care Provider [phone] Encounter Details Date Type Department Care Team (Late st Contact Info) Description 11/14/2023 Ofelia Feliz Message [employer] [facility] [employer] [address] [place] [address] [place] [address] [employer], [facility] Provider Proof of name change Social History [...] on filedocumented in this encounter Care Teams Retail Event Assistant Relationship Specialty Start Date End Date Gary Fuentes MD [address] [address] PCP - General FAMILY PRACTICE 11/22/19 documented as of this encounter
[2025-06-05] MEDS: LIDOCAINE/PRILOCAINE CREAM 2.5-2.5% TUBE 1 EACH TOPICAL (07:20)
[2025-06-05] MEDS: LACTATED RINGERS 1,000 ML 30 ML IV CONT ×2 (07:40→09:22)
[2025-06-05] MEDS: ACETAMINOPHEN 500 MG TABLET 1000 MG PO (07:45)
--- NOTE | 2025-06-05 08:43 | P.PNAN_ITS ---
Anes - Initial Pre Proc Eval Procedure: Operation Date: 06/05/25 09:00 Proposed Procedures p Left Total Mastectomy, Left [place] Lymph Node Biopsy, Prophylactic Right Total Mastectomy with Injection Lymphoseek and Methylene Blue - Sayra Gonzalez MD Date/Time: 06/05/25 08:43 Surgeon: Sayra Gonzalez MD Pre Op Diagnosis: Malig Neoplasm Left Breast Patient Data Age: 55 Gender: F Height: 1.7 m Weight: 76.2 kg Allergies Allergy/AdvReac Type Severity Reaction Status Date / Time No Known Allergies Allergy Verified 05/31/25 14:45 Home Medications ?Medication ?Instructions ?Recorded ?Confirmed ?Type levothyroxine 25 mcg tablet 25 mcg PO HS 05/31/2505/27 History multivitamin 1 tablet PO DAILY 05/31/25 1 08/06/24 History Patient hx anesthesia problems: none Family hx anesthesia problems: none Results Review: All pre-operative results and documents have been reviewed as part of the pre- operative evaluation. [facility] Past Medical History Medical History BMI 25.0-25.9,adult BMI 26.0-26.9,adult GERD (gastroesophageal reflux disease) Stridor Choking Surgical History Surgical History Delivery by section Family History Family History Father Hypertension Malignant neoplasm of prostate Mother Hypertension Family history of diabetes mellitus in first degree relative Social History Social History Smoking status: Never smoker Alcohol intake: never Substance use: never Substance use type: does not use Current Housing: Decline to Answer Concerned About Future Housing: Decline to Answer Difficulty Paying Gas/Electric Bills: Decline to Answer Difficulty Paying for Meds: Decline to Answer Currently Unemployed: Decline to Answer Education: Decline to Answer Difficulty w/ Childcare or Family Care: Decline to Answer Living arrangements: with family Additional living arrangements comments: Occupation/Education: retired Gender identity (if verbalized by the patient): Female Sexual Orientation (if Verbalized by the Patient): Straight or Heterosexual Spiritual care concerns: No Agree to blood products: Yes Anes - Eval Final PreProcedure Day of Procedure 06/05/25 08:43 Patient weight: overweight Heart: regular rate and rhythm Lungs: clear to auscultation Airway: Mallampati scale class II Neurological: alert and oriented Last oral intake: >/= 8 hours ASA classification: III Emergent: no Anesthetic plan: proceed Anesthesia type and monitoring: general ETT and standard monitoring Results Review: All pre-operative results and documents have been reviewed as part of the pre- operative evaluation. Informed Consent: The patient's anesthetic plan and its attendant risks and benefits were discussed with the patient/family/POA. Questions were solicited and answers provided to the satisfaction of the patient/family/POA.
--- NOTE | 2025-06-05 08:53 | WPDHPUPDATE1 ---
History and Physical Update Update Date/Time: 06/05/25 08:53 - Left total mastectomy, prophylactic right total mastectomy, left sentinel lymph node biopsy and injection of Lymphoseek and methylene blue History and Physical has been reviewed, including an updated exam of the patient. There are NO changes in the patient's condition. Risks, benefits, and alternatives have been discussed and questions answered. Patient agrees to proceed with procedure.
[2025-06-05] MEDS: ceFAZolin 2 GM in SODIUM CHLORIDE 0.9% IV 50 ML 100 ML IVPB (09:19)
[2025-06-05 09:52] LABS: BEDSIDEPREGUCG Negative (Negative)
--- NOTE | 2025-06-05 10:44 | S_PTH ---
PATIENT: Mary Ellen Deluna LOC: [facility] U#:[id number] AGE/SX: 55/F ROOM: RE06/05/[address]: Sayra Gonzalez MD : 1970 BED: DIS: 06/06/2025 SPEC #: [id number] RECD: 06/05/25 10:53 STATUS: SISSY REQ #: [id number] RODO: 06/05/25 10:[address]: Sayra Gonzalez DEPT: [facility] Surgical RECD BY: Dana Dean MLT, ([facility]) ENTERED: 06/05/25 10:53 SP TYPE: Surgical OTHR DR: Gary Fuentes MD Tissues: A - [place] [address] Breast B - Breast Mastectomy C - Breast Mastectomy D - Breast Mastectomy E - Breast Mastectomy Procedures: Dowling Keratin Hematoxylin and Eosin Stain Gross and Microscopic Level 5
--- NOTE | 2025-06-05 13:19 | W.PM.PROC2 ---
Procedure Note - Detailed Date of Procedure 06/05/25 Pre-op Diagnosis Malig Neoplasm Left Breast Post-op Diagnosis Same Procedure Performed 1. Left total mastectomy 2. Prophylactic right total mastectomy 3. Left sentinel lymph node biopsy. 4. injection of methylene blue and Lymphoseek for dual tracing Surgeon Sayra Gonzalez MD Anesthesia General Description of Procedure Patient was identified in the preoperative holding area brought to the operating room suite.? She was placed supine operating table sequential compression devices were applied. General anesthesia was induced without difficulty. I performed injection with Lymphoseek and methylene blue in the periareolar region subdermal plane for sentinel lymph node mapping. ? Bilateral chest and right axillary areas were prepped draped in sterile fashion.? Decision was made to start with the left side. The sentimag probe was used to find the area of highest radio activity in the left axilla, and an incision was made overlying this area that was incorporated into the mastectomy incision.? Dissection was carried down through the subcutaneous tissue and the clavipectoral fascia was incised.? I was able to identify a node that was hot and blue.? This was gently grasped and excised using the LigaSure device.? The gamma probe was used to obtain account which was approximately 30080.? This was sent to pathology as a permanent specimen.? The gamma probe was again used to scan the axilla trying to identify another node that was at least 10% of the original sentinel lymph node count. No other node was found and the axilla was irrigated and hemostasis was assured.? The clavipectoral fascia was approximated with a running 3-0 Vicryl.? An elliptical incision encompassing the nipple areolar complex was made and dissection was carried down through the subcutaneous tissue and continued through the thin areolar tissue plane between the subcutaneous tissue with the breast tissue superiorly to the inferior border of the clavicle.? We then continued our dissection medially to the lateral aspect of the sternum, inferiorly to the inframammary fold and laterally to latissimus.? Once this was performed the breast tissue along with the pectoralis fascia was dissected off the pectoralis muscle posteriorly.? The mastectomy specimen was then marked short stitch axillary tail long stitch lateral stitch lateral for orientation.? The specimen was then sent to pathology as a fresh specimen.? Hemostasis was assured. An elliptical incision was again made around the right nipple areola area, and dissection was carried down to the subcutaneous tissue until the thin areolar tissue plane was encountered.? This was then dissected superiorly to the inferior aspect of the clavicle, medially to the lateral aspect of the sternum, laterally to the latissimus dorsi, and inferiorly to the inframammary fold.? The breast along with the pectoralis fascia was then dissected off the pectoralis muscle and the specimen was oriented with a short stitch axillary tail and long stitch laterally, and sent to pathology as the fresh specimen.? Hemostasis was assured.? Two 10Fr flat drains were placed above the pectoralis muscle and secured to the skin with silk suture. The deep dermal layer was closed with interrupted 3-0 Vicryl for both incisions followed by 4-0 Monocryl in a subcuticular fashion for the skin. Dermabond was applied followed by a sterile compression dressing. All needles counts were correct as reported by the operating room staff. Patient tolerated the procedure well with no immediate complications. Estimated Blood Loss 50 Drains Yes Pathology Yes Complications No immediate complications Condition Stable Disposition PACU [facility] Billing Surgery - Charge Forward: Surgery Billing (CPT 49183 - Lt / 30574 - 59 Rt / 58197 - 59 Lt / 21827 - 59 Lt )
[2025-06-05] MEDS: fentaNYL CITRATE INJ (*CRX) 100 MCG/2 ML VIAL 25 MCG IV PUSH ×2 (14:04→14:06)
[2025-06-05] MEDS: ONDANSETRON INJ 4 MG/2 ML VIAL IV PUSH ×2 (14:29→18:52)
[2025-06-05] MEDS: LACTATED RINGERS 1,000 ML 100 ML IV CONT (15:13)
[2025-06-05] MEDS: HYDROmorphone HCL INJ (*CRX) 1 MG/ML SYR 0.5 MG IV PUSH (15:25)
[2025-06-06 00:15] VITALS: BP 140/70; PULSE 72; RESP 16; TEMP 36.7; O2SAT 99
[2025-06-06 05:00] VITALS: BP 136/74; PULSE 92; RESP 16; TEMP 36.6; O2SAT 98
--- NOTE | 2025-06-06 07:58 | P.DS_ITS ---
DS: Admitting Diagnosis Discharge Date 06/06/2025 Admitting Diagnosis Left breast invasive lobular carcinoma DS: Discharge Diagnosis Discharge Diagnosis (1) Invasive lobular carcinoma of left breast in female: Code(s): C50.912 - Malignant neoplasm of unspecified site of left female breast Status: Acute (2) S/P bilateral mastectomy: Code(s): Z90.13 - Acquired absence of bilateral breasts and nipples Status: Acute Assessment and Plan: - discharge home today - discharge instructions, wound care and drain care reviewed with the patient - follow-up in clinic in 1 week DS: Summary Hospital Course Hospital Course: patient was admitted postop for overnight observation after undergoing bilateral total mastectomy and left sentinel lymph node biopsy for left breast invasive lobular carcinoma. Immediately postop patient has some nausea but this resolved overnight and she feels better today. Her pain has been well controlled on p.o. pain medicine and she has been ambulating and voiding without any issues. Patient was deemed ready for discharge on postop day 1. Time spent discussing smoking cessation with patient: 3 to 10 minutes Status at Discharge Functional status at discharge: independent ambulation Overall status at discharge: patient is back to baseline Time Spent with Patient Time attestation: Total time spent providing and/or coordinating discharge services: Time spent: Less than 30 minutes Exam Const: General: comfortable and no acute distress Eyes: General: appearance normal, both eyes and all related structures Resp: Effort & Inspection: normal respiratory effort GI: GI Palp: Yes Soft to palpation Skin: General skin exam: normal color Other: bilateral mastectomy incisions are well approximated with no open wounds or drainage noted. No bleeding. Mastectomy flaps are well perfused throughout with no areas of ischemia. No significant ecchymosis or fluctuance noted. No induration or erythema. Drains are patent bilaterally with serous sanguinous fluid. Neuro: General: gait normal Extrem: General: normal to inspection Psych: Mental Status: mental status grossly normal DS: Data Data Completed and Pending Pending studies at discharge: Pending at discharge 06/05/25 10:44 Surgical [PTH] Routine Surgical [PTH] Routine Labs on day of discharge: Labs from last 24 hours 06/05/25 07:05 POC Urine HCG, Qual Negative Discharge Plan Discharge Patient Disposition: Home Discharge Instructions: Sayra Gonzalez MD [facility] [address] [place] [address] Post-operative Discharge Instructions Diet: As tolerated Activity: Avoid overhead movements with the affected arm/side for 2 weeks. You should walk at least 3-4 times daily, but do not exert yourself. Ok to go up and down stairs. Dressing: Wear the compression bandage at all times, including at night while sleeping. Ok to remove for sponge baths. Patients with Drain: No showers or baths while drain is in place. Ok for sponge baths. Drain Care: Strip the drain tubing at least once a day, and empty drain. Record the drain output and bring record to your follow up visit. Mastectomy patients WITH Drains ONLY: Return to the office in 1 week for post- op follow up visit. Call the office with any questions or concerns in the meantime. If after hours, please call the desizing machine operator head end to be connected to the surgeon. If you have an emergency , call 911 or go to the nearest ER. Patient Language: Barbadian Stand Alone Forms: General Discharge Instructions Discharge Medications: New hydrocodone-acetaminophen 5-325 mg tablet 1 tablet PO Q6H PRN (Reason: pain) Qty: 14 0RF Continued multivitamin Tablet 1 tablet PO DAILY levothyroxine 25 mcg tablet 25 mcg PO HS
[2025-06-06 08:20] VITALS: BP 152/81; PULSE 65; RESP 18; TEMP 36.8; O2SAT 99
[2025-06-06] MEDS: ACETAMINOPHEN 500 MG TABLET 1000 MG PO (10:13)
[2025-06-06] MEDS: DOCUSATE SODIUM 100 MG CAPSULE PO (10:14)
== END 2025-06-06 11:16 | disposition home or self-care (01) ==
LOC: ANHSURGERY 06:43 → ANHOB2 16:14
PROVIDERS: PCP Family Medicine; Visit Provider Surgery
PROC: (CPT 19303; principal; 2025-06-05 09:00)
DX: C50.412 Malignant neoplasm of upper-outer quadrant of left female breast (principal); Z17.0 Estrogen receptor positive status [ER+]; Z17.21 Progesterone receptor positive status; Z17.32 Human epidermal growth factor receptor 2 negative status
CPT/HCPCS: 19303; 38525; 38792; 88307; 88342; 99199; J0690; A9270; A9520; J0330; J1100; J1171; J2003; J2250; J2371; J2405; J2704; J3010; J7120